=== PATIENT | male | born 1940 | race Hispanic/Latino ===

== ENCOUNTER 2018-06-16 22:08 | Inpatient (IN) | payer MEDICARE, OTHER ==
[~2018-06-16] VITALS: Ht 170.2 cm; Wt 80.9 kg
[2018-06-16] MEDS ORDERED: SODIUM CHLORIDE 0.9% 1000ML 1,000 ML IV STA ×2 (22:14→23:31)
[2018-06-16] MEDS ORDERED: PANTOPRAZOLE 40 MG 10ML VIAL IV STA (22:14)
[2018-06-16] MEDS ORDERED: SODIUM CHLORIDE 0.9% 250ML 250 ML IV ONE (22:15)
[2018-06-16 22:30] LABS: BASOPHILS % 0.2 % (0.0-1.0); EOSINOPHILS # (AUTO) 0.2 (0.0-0.4); EOSINOPHILS % 1.8 % (0.0-6.0); LYMPHOCYTES # (AUTO) 4.8 (1.0-3.2); LYMPHOCYTES % 40.7 % (18.0-39.1); MEAN CORPUSCULAR HEMOGLOBIN 33.9 pg (28-32); MEAN CORPUSCULAR HGB CONC 31.7 g/dL (31-35); MONOCYTES # (AUTO) 1.2 (0.2-0.8); MONOCYTES % 9.8 % (4.4-11.3); NEUTROPHILS # (AUTO) 5.6 (2.1-6.9); NEUTROPHILS % 46.9 % (38.7-80.0); PLATELET COUNT 177 x10e3/uL (140-360); RED BLOOD COUNT 1.86 x10e6/uL (4.3-5.7)
[2018-06-16 22:36] LABS: INR 1.05; PROTHROMBIN TIME 14.7 seconds (11.9-14.5)
[2018-06-16 22:45] LABS: B-TYPE NATRIURETIC PEPTIDE2 23.6 pg/mL (0-100); HEMOGLOBIN 6.3 g/dL (14.0-18.0)
[2018-06-16 22:46] LABS: HEMATOCRIT 19.9 % (38.2-49.6)
[2018-06-16 22:47] LABS: ALBUMIN 2.4 g/dL (3.5-5.0); ALBUMIN/GLOBULIN RATIO 1.2 (0.8-2.0); ANION GAP 20.3 mmol/L (8-16); CALCIUM 8.1 mg/dL (8.4-10.2); CREATININE, SERUM 1.37 mg/dL (0.72-1.25); MAGNESIUM 1.6 MG/DL (1.3-2.1); POTASSIUM 4.3 mmol/L (3.5-5.1)
[2018-06-16] MEDS ORDERED: VANCOMYCIN 1GM/NS 250 ML 250 ML IV STA (23:00)
[2018-06-16 23:01] LABS: CLARITY,URINE CLOUDY (CLEAR); COLOR,URINE RED (YELLOW)
[2018-06-16 23:02] LABS: BACTERIA,URINE FEW /HPF; BILIRUBIN,URINE NEGATIVE (NEGATIVE); EPITHELIAL CELLS,URINE FEW /LPF; KETONES,URINE NEGATIVE (NEGATIVE); LEUKOCYTE ESTERASE ,URINE NEGATIVE (NEGATIVE); MUCUS,URINE FEW (RARE); NITRITE,URINE NEGATIVE (NEGATIVE); PROTEIN,URINE DIPSTICK 2+ (NEGATIVE); RBC,URINE >50 /HPF (0-5); URINE UROBILINOGEN 0.2 mg/dL (0.2 - 1)
[2018-06-16] MEDS ORDERED: BENICAR20 MG PO (23:05)
[2018-06-16] MEDS ORDERED: ALTOPREV20 MG PO (23:05)
[2018-06-16 23:33] LABS: ABG HCO3 17 mmol/L (23-28); ABG PCO2 32 mmHg (41-51); ABG PH 7.32 (7.31-7.41); ABG PO2 109 mmHg (80-105)
[2018-06-16] MEDS: FUROSEMIDE INJ 10 MG/ML 2 ML VIAL IV PRN (23:58)
[2018-06-17] VITALS (59 sets, daily range): BP systolic 59–140; BP diastolic 22–78
--- NOTE | 2018-06-17 00:09 | Diagnostic Imaging Report ---
CHEST SINGLE (PORTABLE), 06/16/2018 11:34 PM Technique: CHEST SINGLE (PORTABLE) Comparison: None available. Clinical history: GI bleed Findings: See Impression Impression: 1. Lines/Tubes: Left chest wall ICD with right atrial and ventricular lead. Median sternotomy and CABG. 2. Normal cardiomediastinal silhouette for portable technique. 3. No edema or consolidation. No effusion or pneumothorax. Signed by: Dr Chasidy Silva MD on 06/17/2018 12:07 AM
[2018-06-17] MEDS ORDERED: DEXTROSE 50% SYRINGE 50 ML IV PRN (00:15)
[2018-06-17] MEDS: FUROSEMIDE INJ 10 MG/ML 2 ML VIAL IV PRN (00:15)
--- NOTE | 2018-06-17 00:46 | Diagnostic Imaging Report ---
EXAMINATION: Head CT without contrast. HISTORY:Syncope. COMPARISON:None. TECHNIQUE: Multidetector axial images were obtained from the foramen magnum to the vertex without contrast. The images were reconstructed using brain and bone algorithms. Thin section brain images were reformatted into coronal and sagittal planes. Dose modulation, iterative reconstruction, and/or weight based adjustment of the mA/kV was utilized to reduce the radiation dose to as low as reasonably achievable. Intravenous contrast: None IMAGE QUALITY: Acceptable. FINDINGS: Skull/scalp: No lytic or blastic. lesions. No surgical changes. Parenchyma: Nonspecific few, scattered supratentorial white matter patchy hypodensity are likely related to small vessel ischemic changes. Focal hypodensity in left caudate head and right subinsular region represents age indeterminate possible chronic lacunar infarct. No acute hemorrhage, mass or acute major vascular territorial infarct. Arteries: No density suggestive of thrombosis. Atherosclerotic calcification in bilateral carotid siphon. Dural sinuses: No abnormal density suggestive of thrombosis. Ventricles: No hydrocephalus or displacement. Extra-axial spaces: No abnormal density. Brain volume: Generalized age-related cerebral volume loss. Craniocervical junction: No mass, Chiari malformation, or basilar invagination. Sella: No mass. Paranasal/mastoid sinuses: Imaged portions unremarkable. IMPRESSION: No acute intracranial abnormality. Age indeterminate possible chronic lacunar infarct in right subinsular region and left caudate head. Mild supratentorial white matter microvascular ischemic changes. Generalized age-related cerebral volume loss. Signed by: Dr. Cecilia Arenas M.D. on 06/17/2018 12:44 AM
[2018-06-17] MEDS ORDERED: SODIUM CHLORIDE 0.9% 500ML 500 ML ONE (01:28)
[2018-06-17] MEDS: SODIUM CHLORIDE 0.9% 1000ML 1,000 ML IV SCH ×3 (01:38→17:29)
[2018-06-17] MEDS ORDERED: VANCOMYCIN 1GM/NS 250 ML 250 ML ONE (02:45)
[2018-06-17 05:31] LABS: BASOPHILS % 0.1 % (0.0-1.0); EOSINOPHILS % 0.3 % (0.0-6.0); HEMATOCRIT 29.9 % (38.2-49.6); HEMOGLOBIN 10.2 g/dL (14.0-18.0); LYMPHOCYTES # (AUTO) 2.4 (1.0-3.2); LYMPHOCYTES % 16.4 % (18.0-39.1); MEAN CORPUSCULAR HEMOGLOBIN 33.1 pg (28-32); MEAN CORPUSCULAR HGB CONC 34.1 g/dL (31-35); MONOCYTES # (AUTO) 1.2 (0.2-0.8); MONOCYTES % 7.9 % (4.4-11.3); NEUTROPHILS # (AUTO) 10.9 (2.1-6.9)
[2018-06-17 05:37] LABS: MEAN CORPUSCULAR VOLUME 97.1 fL (81-99); PLATELET COUNT 120 x10e3/uL (140-360); RED BLOOD COUNT 3.08 x10e6/uL (4.3-5.7)
[2018-06-17 05:56] LABS: ALANINE AMINOTRANSFERASE 14 IU/L (0-55); ALBUMIN 2.4 g/dL (3.5-5.0); ALKALINE PHOSPHATASE 63 IU/L (40-150); ANION GAP 13.7 mmol/L (8-16); BLOOD UREA NITROGEN 53 mg/dL (7-26); BUN/CREATININE RATIO 49 (6-25); CALCIUM 7.4 mg/dL (8.4-10.2); CARBON DIOXIDE 18 mmol/L (22-29); CHLORIDE 113 mmol/L (98-107); CREATININE, SERUM 1.08 mg/dL (0.72-1.25); EST GLOMERULAR FILTRATION RATE > 60 ML/MIN (60-); GLUCOSE 110 mg/dL (74-118); POTASSIUM 4.7 mmol/L (3.5-5.1); SODIUM 140 mmol/L (136-145)
[2018-06-17] MEDS ORDERED: PANTOPRAZOL 40MG/SOD CHL 0.9% 50 ML IV ONE (06:29)
[2018-06-17] MEDS ORDERED: PROTONIX 200MG/SODIUM CHLORIDE 0.9% 250 ML BAG IV SCH (06:30)
[2018-06-17] MEDS: PANTOPRAZOL 40MG/SOD CHL 0.9% 50 ML IV SCH ×4 (07:00→21:08)
[2018-06-17] MEDS: INSULIN REGULAR, HUMAN 100 UNIT/1 ML 3ML VIAL SQ SCH ×4 (07:30→21:00)
--- NOTE | 2018-06-17 07:44 | Consultation ---
DATE OF CONSULTATION: GASTROENTEROLOGY CONSULTATION REFERRING PHYSICIAN: Dr. Hidalgo. REASON FOR CONSULTATION: GI bleed. HISTORY OF PRESENT ILLNESS: Mr. Grijalva is a very nice 78-year-old man who unfortunately was recently diagnosed with pancreatic cancer. He is status post ERCP with stenting on May 07. Sphincterotomy and stenting was performed. It was a 10-Naur[place] 7-cm straight stent placed in the middle third of bile duct. He is not entirely sure when he started bleeding. He has had some maroon as well as black tarry stools. He was noted to be significantly anemic in the ER with a hemoglobin of 6.3. He has had some intermittent hypotension as well. He is in the ICU. After 3 units, his hemoglobin has responded to 10.2 despite also hydration. Bilirubin 1.8 from 1; other LFTs are unremarkable. PAST MEDICAL HISTORY 1. Recent diagnosis of pancreatic cancer. 2. Coronary artery disease. 3. AICD. 4. CHF. 5. Hypertension. 6. BPH. 7. GERD. ALLERGIES: REVIEWED. PLEASE SEE MAR, MEDICATION RECONCILIATION FORM. OF NOTE, HE IS ALLERGIC TO SULFA, KEFLEX, AND ASPIRIN. MEDICATIONS: Reviewed. Please see MAR, medication reconciliation form. SURGICAL HISTORY: Coronary artery bypass grafting, pacemaker defibrillator, and ERCP with stent. REVIEW OF SYSTEMS: Patient denies any chest pain or shortness of breath, but does endorse weakness and confusion. Otherwise, 12-system review is unremarkable. PHYSICAL EXAMINATION GENERAL: He is alert. He is oriented. After transfusion, he does not look particularly pale. He is in no acute distress. HEENT: Pupils equal, round, and reactive to light, little bit of conjunctival edema on the right eye. NECK: Supple. LUNGS: Clear. CARDIOVASCULAR: S1 and S2. ABDOMEN: Soft. Mildly tender in the central abdomen. No rebound, guarding, or mass. EXTREMITIES: No clubbing or cyanosis. PSYCH: Calm and cooperative. NEUROLOGIC: Alert and oriented, but reports being somewhat confused, not being able to provide his history well. HEM-ONC: No bruising or adenopathy. LABORATORY AND DIAGNOSTIC DATA: The electronic health record was reviewed for laboratory and radiologic studies as well as history. ASSESSMENT: Gastrointestinal bleed, likely upper gastrointestinal bleed, which is progressive. RECOMMENDATION: At the current time, erosion from the stent or the pancreatic cancer versus other upper GI pathology is on the differential. He could easily be bleeding from the biliary tract. Lower GI bleed is not completely ruled out. He does report that he has had a colonoscopy not long ago. He was unable to provide exactly when as he is currently foggy on details of his medical history. We will need to do upper endoscopy urgently to evaluate the source of the bleeding. Risks, benefits, and alternatives are discussed, and he agrees to proceed. He has now been fasting in appropriate time and is resuscitated adequately. Thank you very much for asking me to see Mr. Grijalva. Any questions or concerns, please do not hesitate to contact me. We will follow closely with you. Job#: [id number] GEMMA
[2018-06-17] MEDS ORDERED: PANTOPRAZOLE 40 MG 10ML VIAL IV SCH (09:00)
[2018-06-17] MEDS: PIPER-TAZ 3.375 GM 50 ML IV SCH ×3 (09:00→20:17)
[2018-06-17] MEDS ORDERED: EPINEPHRINE HCL INJ 1 MG/ML AMP ONE (09:45)
[2018-06-17] MEDS ORDERED: DOCUSATE SODIUM 100 MG CAP PO PRN (10:15)
[2018-06-17 11:55] LABS: BASOPHILS % 0.1 % (0.0-1.0); EOSINOPHILS # (AUTO) 0.2 (0.0-0.4); EOSINOPHILS % 2.2 % (0.0-6.0); HEMATOCRIT 29.3 % (38.2-49.6); LYMPHOCYTES # (AUTO) 2.6 (1.0-3.2); LYMPHOCYTES % 23.8 % (18.0-39.1); MEAN CORPUSCULAR HEMOGLOBIN 32.6 pg (28-32); MEAN CORPUSCULAR HGB CONC 34.1 g/dL (31-35); MEAN CORPUSCULAR VOLUME 95.4 fL (81-99); MONOCYTES # (AUTO) 0.8 (0.2-0.8); MONOCYTES % 7.2 % (4.4-11.3); NEUTROPHILS # (AUTO) 7.3 (2.1-6.9); NEUTROPHILS % 66.2 % (38.7-80.0); PLATELET COUNT 110 x10e3/uL (140-360); RED BLOOD COUNT 3.07 x10e6/uL (4.3-5.7); RED CELL DISTRIBUTION WIDTH 17.8 % (11.7-14.4)
[2018-06-17] MEDS: SUCRALFATE 1 GM TAB PO SCH ×3 (11:55→20:13)
[2018-06-17 16:50] LABS: CREATINE KINASE MB 3.8 ng/mL (0-5.0)
[2018-06-17 19:37] LABS: BASOPHILS % 0.3 % (0.0-1.0); EOSINOPHILS # (AUTO) 0.3 (0.0-0.4); EOSINOPHILS % 2.5 % (0.0-6.0); HEMATOCRIT 26.7 % (38.2-49.6); HEMOGLOBIN 9.3 g/dL (14.0-18.0); LYMPHOCYTES # (AUTO) 2.6 (1.0-3.2); LYMPHOCYTES % 23.4 % (18.0-39.1); MEAN CORPUSCULAR HGB CONC 34.8 g/dL (31-35); MEAN CORPUSCULAR VOLUME 94.7 fL (81-99); MONOCYTES # (AUTO) 0.9 (0.2-0.8); MONOCYTES % 8.2 % (4.4-11.3); NEUTROPHILS # (AUTO) 7.1 (2.1-6.9); NEUTROPHILS % 65.1 % (38.7-80.0); PLATELET COUNT 117 x10e3/uL (140-360); RED BLOOD COUNT 2.82 x10e6/uL (4.3-5.7)
[2018-06-17] MEDS ORDERED: PIPER-TAZ 3.375 GM 50 ML IV SCH (23:32)
[2018-06-17] MEDS: ALPRAZOLAM 0.25 MG TAB PO PRN (23:59)
[2018-06-18] VITALS (39 sets, daily range): BP systolic 86–136; BP diastolic 37–104
[2018-06-18] MEDS: PANTOPRAZOL 40MG/SOD CHL 0.9% 50 ML IV SCH ×4 (02:37→20:30)
[2018-06-18] MEDS: PIPER-TAZ 3.375 GM 50 ML IV SCH ×4 (02:37→20:30)
[2018-06-18] MEDS: SODIUM CHLORIDE 0.9% 1000ML 1,000 ML IV SCH ×2 (02:38→13:00)
[2018-06-18 05:08] LABS: BASOPHILS % 0.1 % (0.0-1.0); EOSINOPHILS # (AUTO) 0.3 (0.0-0.4); EOSINOPHILS % 3.9 % (0.0-6.0); HEMATOCRIT 23.3 % (38.2-49.6); HEMOGLOBIN 8.1 g/dL (14.0-18.0); LYMPHOCYTES # (AUTO) 2.4 (1.0-3.2); LYMPHOCYTES % 32.4 % (18.0-39.1); MEAN CORPUSCULAR HEMOGLOBIN 32.7 pg (28-32); MEAN CORPUSCULAR HGB CONC 34.8 g/dL (31-35); MONOCYTES # (AUTO) 0.5 (0.2-0.8); MONOCYTES % 7.2 % (4.4-11.3); NEUTROPHILS # (AUTO) 4.2 (2.1-6.9); NEUTROPHILS % 55.9 % (38.7-80.0); PLATELET COUNT 99 x10e3/uL (140-360); RED BLOOD COUNT 2.48 x10e6/uL (4.3-5.7)
[2018-06-18] MEDS: INSULIN REGULAR, HUMAN 100 UNIT/1 ML 3ML VIAL SQ SCH ×4 (07:30→20:30)
[2018-06-18] MEDS: SUCRALFATE 1 GM TAB PO SCH ×4 (07:54→20:30)
[2018-06-18 09:50] LABS: ANION GAP 11.9 mmol/L (8-16); BLOOD UREA NITROGEN 39 mg/dL (7-26); BUN/CREATININE RATIO 34 (6-25); CALCIUM 7.8 mg/dL (8.4-10.2); CARBON DIOXIDE 18 mmol/L (22-29); CHLORIDE 114 mmol/L (98-107); CREATININE, SERUM 1.16 mg/dL (0.72-1.25); EST GLOMERULAR FILTRATION RATE > 60 ML/MIN (60-); GLUCOSE 98 mg/dL (74-118); MAGNESIUM 1.4 MG/DL (1.3-2.1); POTASSIUM 3.9 mmol/L (3.5-5.1); SODIUM 140 mmol/L (136-145)
[2018-06-18] MEDS ORDERED: MAGNESIUM SULFATE 2GM/50ML 100 ML IV ONE (12:00)
[2018-06-18 12:09] LABS: BASOPHILS % 0.3 % (0.0-1.0); EOSINOPHILS # (AUTO) 0.2 (0.0-0.4); EOSINOPHILS % 2.9 % (0.0-6.0); HEMATOCRIT 23.6 % (38.2-49.6); HEMOGLOBIN 8.2 g/dL (14.0-18.0); LYMPHOCYTES # (AUTO) 1.7 (1.0-3.2); LYMPHOCYTES % 21.6 % (18.0-39.1); MEAN CORPUSCULAR HEMOGLOBIN 32.4 pg (28-32); MEAN CORPUSCULAR HGB CONC 34.7 g/dL (31-35); MEAN CORPUSCULAR VOLUME 93.3 fL (81-99); MONOCYTES # (AUTO) 0.7 (0.2-0.8); MONOCYTES % 8.2 % (4.4-11.3); NEUTROPHILS # (AUTO) 5.3 (2.1-6.9); NEUTROPHILS % 66.6 % (38.7-80.0); PLATELET COUNT 106 x10e3/uL (140-360); RED BLOOD COUNT 2.53 x10e6/uL (4.3-5.7); RED CELL DISTRIBUTION WIDTH 17.7 % (11.7-14.4)
[2018-06-18] MEDS ORDERED: PROPOFOL IV EMULSION 10 MG/ML 20 ML VIAL ONE (12:44)
--- NOTE | 2018-06-18 12:58 | Consultation ---
DATE OF CONSULTATION: June 18, 2018 CARDIOLOGY CONSULTATION REQUESTING PHYSICIAN: Dr. Doug Hidalgo REASON FOR CONSULTATION: Nonsustained ventricular tachycardia HISTORY OF PRESENT ILLNESS: This is a 78-year-old man with history of coronary artery disease status post CABG, hypertension, systolic heart failure status post AICD, and recently diagnosed pancreatic cancer status post sphincterotomy and stent, who presented with GI bleeding. The patient is a very poor historian and is unable to state when he began bleeding, but notes maroon and dark, tarry stools. He was found to be anemic in the ER with a hemoglobin of 6.3 for which he was transfused 3 units PRBCs. Cardiology was consulted for episode of nonsustained ventricular tachycardia overnight. He denies any chest pain, shortness of breath, palpitations, edema, orthopnea or PND. REVIEW OF SYSTEMS: Negative, except as per HPI. PAST MEDICAL HISTORY 1. Coronary artery disease, status post CABG. 2. Congestive heart failure, status post AICD. 3. Hypertension. 4. Recently diagnosed pancreatic cancer. 5. BPH. PAST SURGICAL HISTORY 1. CABG. 2. AICD. 3. ERCP with sphincterotomy and stent. ALLERGIES: PLEASE SEE EMR. MEDICATIONS: Please see medication list. SOCIAL HISTORY: Denies tobacco, alcohol, or illicit drugs. FAMILY HISTORY: Noncontributory. PHYSICAL EXAMINATION VITAL SIGNS: Temperature 98.1 degrees, pulse 79, respiratory rate 16, blood pressure 102/41, oxygen saturation 95% on 1 L nasal cannula. GENERAL: Elderly man in no acute distress, well developed, well nourished. HEENT: Normocephalic and atraumatic. Pupils are equal. No scleral icterus. NECK: Supple. No thyromegaly or cervical lymphadenopathy. No carotid bruit. LUNGS: Clear to auscultation bilaterally. No wheezes or crackles. CARDIOVASCULAR: Normal rate, regular rhythm. No murmur. Normal S1 and S2. ABDOMEN: Soft. Nontender. EXTREMITIES: No edema. NEURO: Nonfocal exam. LABS: WBC 7.49, hemoglobin 8.1, hematocrit 23.3, platelets 99. Sodium 140, potassium 3.9, chloride 114, CO2 18, BUN 39, creatinine 1.16. Troponin 0.480. TELEMETRY: Normal sinus rhythm with episode of nonsustained ventricular tachycardia. IMPRESSION 1. Gastrointestinal bleeding. 2. Nonsustained ventricular tachycardia. 3. Congestive heart failure, status post automatic implantable cardioverter-defibrillator. 4. Coronary artery disease, status post coronary artery bypass graft. 5. Elevated troponin. 6. Hypertension. 7. Acute kidney injury, improved. 8. BPH. RECOMMENDATIONS: Continue trending cardiac enzymes. The patient is not a candidate for anticoagulation given current GI bleeding. Continue statin. Obtain echocardiogram. Monitor and replete electrolytes. We will request ICD interrogation. Thank you for this consult. We will continue to follow. Job#: [id number]
[2018-06-18 16:44] LABS: BASOPHILS % 0.3 % (0.0-1.0); EOSINOPHILS # (AUTO) 0.2 (0.0-0.4); EOSINOPHILS % 3.1 % (0.0-6.0); HEMATOCRIT 26.6 % (38.2-49.6); HEMOGLOBIN 9.2 g/dL (14.0-18.0); LYMPHOCYTES # (AUTO) 1.9 (1.0-3.2); LYMPHOCYTES % 26.1 % (18.0-39.1); MEAN CORPUSCULAR HEMOGLOBIN 33.1 pg (28-32); MEAN CORPUSCULAR HGB CONC 34.6 g/dL (31-35); MEAN CORPUSCULAR VOLUME 95.7 fL (81-99); MONOCYTES # (AUTO) 0.5 (0.2-0.8); NEUTROPHILS # (AUTO) 4.7 (2.1-6.9); NEUTROPHILS % 63.1 % (38.7-80.0); PLATELET COUNT 130 x10e3/uL (140-360); RED BLOOD COUNT 2.78 x10e6/uL (4.3-5.7); RED CELL DISTRIBUTION WIDTH 17.8 % (11.7-14.4)
[2018-06-18 16:55] LABS: ANION GAP 12.9 mmol/L (8-16); CALCIUM 8.2 mg/dL (8.4-10.2); CREATININE, SERUM 1.22 mg/dL (0.72-1.25); MAGNESIUM 2.7 MG/DL (1.3-2.1); POTASSIUM 3.9 mmol/L (3.5-5.1)
--- NOTE | 2018-06-18 17:11 | Diagnostic Imaging Report ---
Examination: CT head without contrast Clinical Indication: Weakness. Evaluate for stroke. Technique: Transaxial noncontrast images from the skull base through the vertex were obtained. Sagittal and coronal reformatted images were done. Dose modulation, iterative reconstruction, and/or weight based adjustment of the mA/kV was utilized to reduce the radiation dose to as low as reasonably achievable. Comparison: Head CT performed June 17, 2018. Findings: Scalp: No abnormalities. Bones: Intact. No fractures. No blastic or lytic lesions. Brain sulci: Appropriate for patient's age. Ventricles: Normal in size and configuration. No hydrocephalus. . Extra-axial space: No abnormalities. Parenchyma: Again demonstrated are patchy confluent areas of low-attenuation within subcortical and periventricular white matter, nonspecific, but could represent microvascular ischemic disease. Chronic lacunar infarcts are again demonstrated in the right subinsular cortex and left caudate head. No masses, hemorrhage, or acute or chronic cortical based vascular insults. Suprasellar region: No abnormalities. Craniocervical junction: The foramen magnum is patent. No Chiari one malformation. Incidental findings: Atherosclerotic calcification of the cavernous and supraclinoid internal carotid and V4 segments of the bilateral vertebral arteries. Impression: 1. No acute intracranial finding when compared to prior head CT performed June 17. 2. Unchanged mild chronic microvascular ischemic change and chronic lacunar infarcts, as above. Signed by: Dr. Seema Mcdermott M.D. on 06/18/2018 5:08 PM
[2018-06-18 17:14] LABS: CREATINE KINASE MB 3.1 ng/mL (0-5.0)
[2018-06-18 17:20] LABS: INR 0.98; PROTHROMBIN TIME 13.9 seconds (11.9-14.5)
--- NOTE | 2018-06-18 22:27 | Progress Note ---
DATE: June 18, 2018 SUBJECTIVE: Patient is very well known to me from his last admission. He has inoperable pancreatic mass highly suggestive of pancreatic adenocarcinoma. He presented on last admission with obstructive jaundice. ERCP was done. Plastic stent was placed. Jaundice released. Patient was discharged. Patient left the hospital. We tried to reach him from our office to follow to get stent exchanged and also referral to pancreatic surgeon. Dr. Hidalgo happens to be patient's primary care physician. He also contracted the patient several times, but he never returned his call. Our office contracted him once, but he refused to follow up for stent exchange. This time, he presented with black tarry stool. Upper endoscopy was performed. This was negative. Did not show any source of blood loss. No active bleeding was seen. REVIEW OF SYSTEMS GENERAL: No fever or chills. RESPIRATORY: No cough or expectoration. CVS: No chest pain or palpitation. MEDICATIONS: Reviewed as per NOV. PHYSICAL EXAMINATION VITAL SIGNS: Temperature 98, pulse 64, respirations 15 to 19, blood pressure 125/66, oxygen saturation 97% on room air. GENERAL: Not in any acute distress. Oral mucosa is moist. Anicteric sclerae. ABDOMEN: Soft, nondistended, nontender. No palpable mass or hernia. Positive bowel sounds. LABS: WBC 7.42, hemoglobin 9.2 which is up from 8.2, hematocrit 26.6, MCV 95.7, platelet count 130,000. Sodium 139, potassium 3.9, chloride 111, bicarbonate 19, BUN 29, creatinine 1.22. PT 13.9, INR 0.98. CT of the brain: No acute intracranial process. IMPRESSION: No evidence of any active gastrointestinal bleeding. Hemoglobin is stable. PLAN: Will discontinue Protonix gtt to Protonix orally once a day for gastrointestinal prophylaxis. No need for sucralfate. Patient does not have any peptic ulcer. Will address with the patient regarding repeat endoscopic retrograde cholangiopancreatography with a plastic stent to be exchanged with a covered metal stent to prevent future jaundice. Job#: [id number] LORENZO
[2018-06-19] VITALS (26 sets, daily range): BP systolic 94–135; BP diastolic 35–85
[2018-06-19 00:24] LABS: BASOPHILS % 0.3 % (0.0-1.0); EOSINOPHILS # (AUTO) 0.3 (0.0-0.4); EOSINOPHILS % 3.5 % (0.0-6.0); HEMATOCRIT 25.6 % (38.2-49.6); HEMOGLOBIN 8.6 g/dL (14.0-18.0); LYMPHOCYTES # (AUTO) 1.9 (1.0-3.2); LYMPHOCYTES % 26.2 % (18.0-39.1); MEAN CORPUSCULAR HEMOGLOBIN 32.5 pg (28-32); MEAN CORPUSCULAR HGB CONC 33.6 g/dL (31-35); MEAN CORPUSCULAR VOLUME 96.6 fL (81-99); MONOCYTES # (AUTO) 0.5 (0.2-0.8); MONOCYTES % 6.9 % (4.4-11.3); NEUTROPHILS # (AUTO) 4.5 (2.1-6.9); NEUTROPHILS % 62.8 % (38.7-80.0); PLATELET COUNT 123 x10e3/uL (140-360); RED BLOOD COUNT 2.65 x10e6/uL (4.3-5.7); RED CELL DISTRIBUTION WIDTH 17.6 % (11.7-14.4)
[2018-06-19] MEDS: SODIUM CHLORIDE 0.9% 1000ML 1,000 ML IV SCH ×3 (00:35→20:18)
[2018-06-19] MEDS: PIPER-TAZ 3.375 GM 50 ML IV SCH ×4 (03:45→20:12)
[2018-06-19 04:45] LABS: BASOPHILS % 0.3 % (0.0-1.0); EOSINOPHILS # (AUTO) 0.3 (0.0-0.4); HEMATOCRIT 24.8 % (38.2-49.6); HEMOGLOBIN 8.5 g/dL (14.0-18.0); LYMPHOCYTES # (AUTO) 1.9 (1.0-3.2); MEAN CORPUSCULAR HEMOGLOBIN 32.7 pg (28-32); MEAN CORPUSCULAR HGB CONC 34.3 g/dL (31-35); MEAN CORPUSCULAR VOLUME 95.4 fL (81-99); MONOCYTES # (AUTO) 0.6 (0.2-0.8); MONOCYTES % 8.4 % (4.4-11.3); PLATELET COUNT 99 x10e3/uL (140-360); RED CELL DISTRIBUTION WIDTH 17.4 % (11.7-14.4)
[2018-06-19 05:04] LABS: ANION GAP 11.6 mmol/L (8-16); BLOOD UREA NITROGEN 22 mg/dL (7-26); BUN/CREATININE RATIO 19 (6-25); CALCIUM 8.1 mg/dL (8.4-10.2); CARBON DIOXIDE 19 mmol/L (22-29); CHLORIDE 113 mmol/L (98-107); CREATININE, SERUM 1.16 mg/dL (0.72-1.25); EST GLOMERULAR FILTRATION RATE > 60 ML/MIN (60-); GLUCOSE 95 mg/dL (74-118); MAGNESIUM 2.2 MG/DL (1.3-2.1); PHOSPHORUS 3.1 MG/DL (2.3-4.7); POTASSIUM 3.6 mmol/L (3.5-5.1); SODIUM 140 mmol/L (136-145)
[2018-06-19] MEDS: INSULIN REGULAR, HUMAN 100 UNIT/1 ML 3ML VIAL SQ SCH ×4 (07:30→20:22)
[2018-06-19] MEDS: PANTOPRAZOLE SOD 40 MG TABEC PO SCH (08:36)
[2018-06-19 17:54] LABS: CHOL/HDL RATIO 4.3 (3.9-4.7)
--- NOTE | 2018-06-19 19:06 | Progress Note ---
DATE: June 19, 2018 CARDIOLOGY PROGRESS NOTE SUBJECTIVE: No major events overnight. Continues to have black stools. However, no active bleeding. H\T\H remain stable. OBJECTIVE VITAL SIGNS: Temperature 98.0, pulse 61, respiratory rate 16, blood pressure 107/53, satting 99% on room air. GENERAL: man in no acute distress. CARDIOVASCULAR: Regular rate and rhythm. No murmurs, rubs or gallops. Palpable carotid pulses. Palpable radial pulses. LUNGS: Clear to auscultation bilaterally. ABDOMEN: Soft, nontender. No masses. NEURO: Alert and oriented to person, place and time. Left-sided weakness. LABORATORY DATA: Reviewed. TELEMETRY DATA: Reviewed. Normal sinus rhythm with short episode of nonsustained VT. ASSESSMENT 1. Gastrointestinal bleeding. 2. Nonsustained ventricular tachycardia. 3. Congestive heart failure status post automatic implantable cardioverter-defibrillator. 4. Coronary artery disease status post coronary artery bypass graft. 5. Elevated troponin. 6. Hypertension. 7. Acute kidney injury. 8. Benign prostatic hypertrophy. RECOMMENDATIONS: Troponin was positive with peak of 0.542. However, CK and CK-MB were negative. This is consistent likely with a type II WA in the setting of GI bleeding and possible stroke, not consistent with ACS. Given the recent GI bleeding and melena, not a candidate for anticoagulation. Neuro is following for left-sided weakness. Continue aspirin and statin. Thank you for this consult. Will continue to follow. Job#: [id number] EV
[2018-06-19 19:57] LABS: BASOPHILS % 0.1 % (0.0-1.0); EOSINOPHILS # (AUTO) 0.3 (0.0-0.4); EOSINOPHILS % 3.9 % (0.0-6.0); HEMATOCRIT 27.1 % (38.2-49.6); LYMPHOCYTES # (AUTO) 1.9 (1.0-3.2); MEAN CORPUSCULAR HEMOGLOBIN 32.6 pg (28-32); MEAN CORPUSCULAR HGB CONC 33.2 g/dL (31-35); MEAN CORPUSCULAR VOLUME 98.2 fL (81-99); MONOCYTES # (AUTO) 0.6 (0.2-0.8); MONOCYTES % 9.4 % (4.4-11.3); NEUTROPHILS # (AUTO) 3.9 (2.1-6.9); NEUTROPHILS % 58.5 % (38.7-80.0); PLATELET COUNT 132 x10e3/uL (140-360); RED BLOOD COUNT 2.76 x10e6/uL (4.3-5.7); RED CELL DISTRIBUTION WIDTH 17.5 % (11.7-14.4)
[2018-06-19] MEDS: SIMVASTATIN 20 MG TAB PO SCH (20:13)
[2018-06-19] MEDS: ALPRAZOLAM 0.25 MG TAB PO PRN (20:18)
--- NOTE | 2018-06-19 23:20 | Consultation ---
DATE OF CONSULTATION: June 19, 2018 NEUROLOGY CONSULT HISTORY OF PRESENT ILLNESS: Mr. Grijalva is a 78-year-old right hand dominant man with past medical history significant for hypertension, hyperlipidemia, coronary artery disease, and a prior stroke without residual deficits, admitted to [facility] on June 17, 2018, for gastrointestinal bleed. A neurology consultation is requested to evaluate for recent stroke. At approximately 16:20 on June 18, 2018, the patient reported a sudden onset of left arm weakness to the nurse. Mr. Grijalva endorsed left arm numbness as well. He did not, and does not, endorse a visual field cut or other disturbance, dysarthria, aphasia, facial droop, dizziness, or confusion. An electrocardiogram, cardiac enzymes, and a stat CT of the brain without contrast were ordered for further evaluation. The patient's electrocardiogram revealed a paced rhythm at 60 beats per minute. As regard to the patient's cardiac enzymes, his creatinine kinase and CK-MB were within normal limits. His troponin I was mildly elevated at 0.542. A CT of the brain without contrast did not show evidence of recent large territorial ischemia or hemorrhage. However, due to the patient's admitting diagnosis of gastrointestinal bleed, Mr. Grijalva was not a candidate for intravenous thrombolytics. As stated above, the patient does report experiencing a prior stroke. He does not recall what symptoms he had during his prior stroke. He reports no residual deficits from his prior stroke. It should be noted, the patient is not on antiplatelet or anticoagulant therapy at home. REVIEW OF SYSTEMS: Gastrointestinal bleed, diarrhea, dark tarry stools, weakness of the left arm, numbness of the left arm. Otherwise, a 12-point review of systems is negative. 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 PAST SURGICAL HISTORY: Pacemaker placement, coronary artery bypass graft times 2, ERCP, clubfoot repair. PAST HOSPITALIZATIONS: Surgeries/procedures as listed, stricture of the bile duct, multiple other hospitalizations for various symptoms. FAMILY MEDICAL HISTORY: Hypertension and coronary artery disease. Two maternal relatives are from pancreatic cancer. SOCIAL HISTORY: Mr. Grijalva is . He lives with his significant other. The patient is retired. The patient does not endorse current or prior tobacco or recreational drug use. He has not consumed alcohol in 30 years. HOME MEDICATIONS: 1. Olmesartan 20 mg by mouth daily. 2. Lovastatin 20 mg by mouth daily. ALLERGIES: SULFA, ASPIRIN, CEPHALEXIN. NO KNOWN FOOD ALLERGIES. NO KNOWN ALLERGIES TO LATEX. NO KNOWN ALLERGIES TO IODINE OR OTHER CONTRAST MATERIALS. PHYSICAL EXAMINATION: VITAL SIGNS: Height 67 inches, weight 176 pounds. BMI 27.6 kg per meter squared. Blood pressure 107/53 mmHg. Pulse 61 beats per minute. Respiratory rate 16 breaths per minute. Oxygen saturation 99% on 1 L by nasal cannula. GENERAL: The patient is awake and alert. Does not appear distressed. Overweight. HEENT: Normocephalic, atraumatic. Pupils are equal, round, and reactive to light. Moist mucous membranes. NECK: Supple. No appreciable thyromegaly. No appreciable carotid bruits. CARDIOVASCULAR: S1 and S2, regular rate and rhythm. No murmurs, rubs, or gallops. RESPIRATORY: Clear to auscultation bilaterally. No wheezes, rhonchi or rales. EXTREMITIES: The skin is warm and dry. No clubbing, cyanosis, or edema. The posterior tibial and dorsalis pedis pulses are 1+ and symmetric. SKIN: No rashes or lesions. NEUROLOGIC Memory/Attention: The patient is awake and alert. Oriented to person, place, time, and situation. Cranial Nerves: Cranial nerve I--not tested. Cranial nerve II, III, IV, and --pupils are equal and round, react briskly to light (from 4 mm to 2 mm). Extraocular movements intact. No nystagmus. Cranial nerve V--sensation to light touch and pinprick is intact in the bilateral V1 through V3 distributions. Strength of the temporalis and masseter muscles is within normal limits. Cranial nerve VII--the face is symmetric as are all facial movements. Strength is within normal limits. Cranial nerve VIII--hearing is intact to finger rub bilaterally. Cranial nerve IX, X--the soft palate elevates equally and symmetrically. Cranial nerve XI--normal strength of the bilateral sternocleidomastoid and trapezius muscles. Cranial nerve XII--the tongue protrudes in midline and moves symmetrically from side to side. Strength: Bulk is normal. Strength is 5/5 in the right deltoid, biceps, triceps, wrist flexors and extensors, finger flexors and extensors, intrinsic hand muscles, bilateral hip flexors, bilateral knee flexors and extensors, bilateral ankle dorsiflexion and plantar flexion, and bilateral intrinsic foot muscles. Tone is normal in the right arm and both legs. Strength is grossly 3/5 in the left arm. Tone is decreased in the left arm. DTRs: Deep tendon reflexes are 2+ and symmetric at the triceps, biceps, brachioradialis, and patellas. Deep tendon reflexes are absent and symmetric at the Achilles. Plantar responses are flexor bilaterally. Sensation: Sensation is intact to light touch and pinprick in both arms and both legs. Cerebellar: Bcquas-[id number]-wstjch and heel-benites movements are intact without dysmetria or other impairment except as follows: There is dysmetria of the left arm, but this is within the bounds of paresis. Gait: Deferred. Speech: Spontaneous speech is normal without appreciable dysarthria or aphasia. Repetition is intact. Involuntary Movements: None. Pronator Drift: Right arm. LABORATORY DATA: The patient's basic metabolic panel is significant for an elevated serum chloride of 113, a low carbon dioxide of 19, a low calcium of 8.1, and a mildly elevated magnesium of 2.2. Liver function tests drawn on June 16, 2018, are within normal limits. Lactic acid from June 16, 2018, is 77.8. A repeat lactic acid level on June 17, 2018, was 18.5. B-type natriuretic peptide 23.6. Cardiac enzymes were negative on June 16, 2018, June 17, 2018. On the afternoon of June 17, 2018, the troponin I increased to 0.480, 0.480, 0.542. The CBC with differential and platelets reveals a white blood cell count of 6.69 with a normal differential. The hemoglobin and hematocrit are 9.0 and 27.1, respectively. The platelet count is 132,000. A urinalysis collected on June 16, 2018, revealed cloudy red urine with 2+ protein, 3+ blood, greater than 50 red blood cells, 6 to 10 white blood cells, few epithelials cells, and few bacteria. A urine culture collected on June 16, 2018, showed no growth after 36 to 48 hours. DIAGNOSTIC STUDIES: Electrocardiogram on June 18, 2018: Paced rhythm at 60 beats per minute. Low-voltage QRS. Echocardiogram on June 18, 2018: Ejection fraction 30% to 35%. Concentric left ventricular hypertrophy. Chest x-ray on June 16, 2018: 1. Lines/tubes: Left chest wall ICD with right atrial and ventricular leads. Median sternotomy and CABG. 2. Normal cardiomediastinal silhouette for portable technique. 3. No edema or consolidation. No effusion or pneumothorax. CT of the brain without contrast on June 17, 2018: On my review, there is no evidence of recent large territorial ischemia, hemorrhage, mass, or mass effect. There are chronic lacunar infarcts of the right subinsular region and left caudate head. There is diffuse cerebral atrophy, appropriate for age. There are findings compatible with [id number] chronic small vessel ischemic disease. CT of the brain without contrast on June 18, 2018: Stable from prior CT of the brain without contrast performed on June 17, 2018. ASSESSMENT AND PLAN: Mr. Grijalva is a 78-year-old right hand dominant man with multiple vascular risk factors, admitted to [facility] on June 17, 2018, with a gastrointestinal bleed, who developed acute left arm weakness at approximately 16:20 on June 18, 2018. As soon as the patient's symptoms were recognized, a stat computed tomography of the brain was performed and did not reveal evidence of recent large territorial ischemia or hemorrhage. However, due to the patient's admitting diagnosis of a gastrointestinal bleed, treatment with intravenous thrombolytics was contraindicated. At present, Mr. Grijlava's neurological examination is significant for weakness of the left arm. His laboratory data and other diagnostic studies have been reviewed and are documented above. RECOMMENDATIONS: 1. A lipid panel and hemoglobin A1c will be ordered to assess control of the patient's vascular risk factors. 2. Bilateral carotid artery ultrasound with Doppler will be ordered to complete the stroke evaluation. 3. The patient may not be treated with antiplatelet or anticoagulant medication secondary to a gastrointestinal bleed. 4. The patient's blood pressures are currently at goal without antihypertensive medications. Continue to monitor vital signs per unit protocol. 5. Follow up the results of the patient's lipid panel. In the interim, treatment with simvastatin 20 mg by mouth at bedtime daily will be prescribed. 6. Follow up the results of the patient's hemoglobin A1c. Tight glycemic control is recommended while the patient is in the hospital. 7. Evaluations from physical and possibly speech therapy will be ordered in the near future. 8. GI prophylaxis with pantoprazole 40 mg by mouth daily. DVT prophylaxis with LEIGH hose and SCDs. 9. Defer treatment of the remaining medical comorbidities to the primary and other services following the patient. Thank you for this consultation. I will continue to follow the patient while he remains in the hospital. TIME SPENT: 70 minutes. Job#: [id number] KIMBERLY VENTURA
[2018-06-20] VITALS (21 sets, daily range): BP systolic 105–146; BP diastolic 53–69
[2018-06-20] MEDS: PIPER-TAZ 3.375 GM 50 ML IV SCH ×4 (02:33→20:26)
[2018-06-20 05:03] LABS: BASOPHILS % 0.2 % (0.0-1.0); EOSINOPHILS # (AUTO) 0.2 (0.0-0.4); EOSINOPHILS % 4.3 % (0.0-6.0); HEMOGLOBIN 8.2 g/dL (14.0-18.0); LYMPHOCYTES # (AUTO) 1.6 (1.0-3.2); LYMPHOCYTES % 29.6 % (18.0-39.1); MEAN CORPUSCULAR HEMOGLOBIN 32.8 pg (28-32); MEAN CORPUSCULAR HGB CONC 34.2 g/dL (31-35); MONOCYTES # (AUTO) 0.4 (0.2-0.8); MONOCYTES % 7.4 % (4.4-11.3); NEUTROPHILS # (AUTO) 3.2 (2.1-6.9); NEUTROPHILS % 58.1 % (38.7-80.0); PLATELET COUNT 117 x10e3/uL (140-360); RED CELL DISTRIBUTION WIDTH 17.1 % (11.7-14.4)
[2018-06-20 05:14] LABS: INR 1.05; PROTHROMBIN TIME 14.6 seconds (11.9-14.5)
[2018-06-20 05:15] LABS: PARTIAL THROMBOPLASTIN TIME 28.1 seconds (23.8-35.5)
[2018-06-20 05:21] LABS: ALANINE AMINOTRANSFERASE 12 IU/L (0-55); ALBUMIN 2.4 g/dL (3.5-5.0); ALKALINE PHOSPHATASE 55 IU/L (40-150); ANION GAP 12.5 mmol/L (8-16); BLOOD UREA NITROGEN 13 mg/dL (7-26); BUN/CREATININE RATIO 11 (6-25); CARBON DIOXIDE 19 mmol/L (22-29); CHLORIDE 113 mmol/L (98-107); CREATININE, SERUM 1.16 mg/dL (0.72-1.25); EST GLOMERULAR FILTRATION RATE > 60 ML/MIN (60-); GLUCOSE 115 mg/dL (74-118); POTASSIUM 3.5 mmol/L (3.5-5.1); SODIUM 141 mmol/L (136-145)
[2018-06-20] MEDS: INSULIN REGULAR, HUMAN 100 UNIT/1 ML 3ML VIAL SQ SCH ×4 (07:30→20:26)
[2018-06-20] MEDS: PANTOPRAZOLE SOD 40 MG TABEC PO SCH (07:30)
[2018-06-20] MEDS: SODIUM CHLORIDE 0.9% 1000ML 1,000 ML IV SCH ×2 (09:40→17:24)
--- NOTE | 2018-06-20 10:22 | Progress Note ---
DATE: June 20, 2018 CARDIOLOGY PROGRESS NOTE SUBJECTIVE: The patient denies chest pain or shortness of breath. He has not had further bleeding. However, he is more confused than prior. OBJECTIVE VITALS: Temperature 98.9 degrees, pulse 62, respiratory rate 20, blood pressure 129/62, oxygen saturation 99% on room air. GENERAL: Awake, alert and in no acute distress. Somewhat confused. LUNGS: Clear to auscultation bilaterally. No wheezes or crackles. CARDIOVASCULAR: Normal rate. Regular rhythm. No murmur. Normal S1 and S2. ABDOMEN: Soft and nontender. EXTREMITIES: No edema. Left-sided weakness is noted. CARDIAC MEDICATIONS: Simvastatin 20 mg p.o. at bedtime. LABS: WBC 5.54, hemoglobin 8.2, hematocrit 24, and platelets 117,000. Sodium 141, potassium 3.5, chloride 113, CO2 19, BUN 13, creatinine 1.16. INR 1.05. Telemetry is A-paced with PVCs. IMPRESSION 1. Gastrointestinal bleeding. 2. Nonsustained ventricular tachycardia. 3. Left arm weakness. 4. Congestive heart failure: Status post automatic implanted cardioverter defibrillator. 5. Coronary artery disease: Status post coronary artery bypass graft. 6. Elevated troponin. 7. Hypertension. 8. Acute kidney injury. 9. BPH. 10. Pancreatic cancer. RECOMMENDATIONS: The patient is not a candidate for anticoagulation due to GI bleeding. We will discuss with GI if aspirin 81 mg can be initiated. Continue statin. Continue monitoring the patient on telemetry. Monitor and replete electrolytes. Thank you for this consult. We will continue to follow. Job#: [id number] [facility]
[2018-06-20 12:33] LABS: EOSINOPHILS # (AUTO) 0.2 (0.0-0.4); EOSINOPHILS % 3.7 % (0.0-6.0); HEMOGLOBIN 8.5 g/dL (14.0-18.0); LYMPHOCYTES # (AUTO) 1.2 (1.0-3.2); LYMPHOCYTES % 23.7 % (18.0-39.1); MEAN CORPUSCULAR HEMOGLOBIN 33.1 pg (28-32); MEAN CORPUSCULAR VOLUME 97.3 fL (81-99); MONOCYTES # (AUTO) 0.4 (0.2-0.8); MONOCYTES % 7.5 % (4.4-11.3); NEUTROPHILS # (AUTO) 3.3 (2.1-6.9); NEUTROPHILS % 64.9 % (38.7-80.0); PLATELET COUNT 116 x10e3/uL (140-360); RED BLOOD COUNT 2.57 x10e6/uL (4.3-5.7); RED CELL DISTRIBUTION WIDTH 17.2 % (11.7-14.4)
[2018-06-20] MEDS ORDERED: IOPAMIDOL 610MG/1ML 300 MG/ML VIAL IV ONE (14:20)
[2018-06-20] MEDS ORDERED: INDOMETHACIN 50 MG SUPP.RECT RC ONE (14:21)
[2018-06-20] MEDS: PANTOPRAZOLE 40 MG 10ML VIAL IV SCH (17:24)
[2018-06-20] MEDS ORDERED: PROPOFOL IV EMULSION 10 MG/ML 20 ML VIAL ONE (17:27)
[2018-06-20] MEDS ORDERED: SEVOFLURANE INHAL SOLN 250 ML PEN BTL ONE (17:27)
[2018-06-20] MEDS ORDERED: ETOMIDATE 2 MG/ML 10 ML INJ IV ONE (17:27)
[2018-06-20] MEDS ORDERED: LIDOCAINE HCL 2% LOCAL INJ 5 ML SDV VIAL INJ ONE (17:27)
[2018-06-20] MEDS ORDERED: SUCCINYLCHOLINE 200 MG/10 ML SYR ONE (17:27)
[2018-06-20] MEDS ORDERED: ONDANSETRON HCL INJ 2 MG/ML VIAL ONE (17:27)
[2018-06-20] MEDS ORDERED: ROCURONIUM BROMIDE 10 MG/ML 5ML VIAL ONE (17:27)
[2018-06-20 18:57] LABS: BASOPHILS % 0.2 % (0.0-1.0); EOSINOPHILS # (AUTO) 0.1 (0.0-0.4); EOSINOPHILS % 1.3 % (0.0-6.0); HEMATOCRIT 28.7 % (38.2-49.6); HEMOGLOBIN 9.7 g/dL (14.0-18.0); LYMPHOCYTES # (AUTO) 1.4 (1.0-3.2); LYMPHOCYTES % 14.7 % (18.0-39.1); MEAN CORPUSCULAR HEMOGLOBIN 33.4 pg (28-32); MEAN CORPUSCULAR HGB CONC 33.8 g/dL (31-35); MONOCYTES % 10.5 % (4.4-11.3); NEUTROPHILS # (AUTO) 6.7 (2.1-6.9); NEUTROPHILS % 72.8 % (38.7-80.0); PLATELET COUNT 125 x10e3/uL (140-360); RED CELL DISTRIBUTION WIDTH 17.5 % (11.7-14.4)
--- NOTE | 2018-06-20 20:17 | Progress Note ---
DATE: June 19, 2018 Patient was seen at bedside yesterday. The progress note is being transcribed today. SUBJECTIVE: Patient reports no abdominal pain. He is feeling weak. Tolerating oral feeds. Regular bowel movements. REVIEW OF SYSTEMS GENERAL: No fever or chills. CVS: No chest pain or palpitation. RESPIRATORY: No cough or expectoration. MEDICATION LIST: Reviewed as per NOV. He is getting intravenous piperacillin/tazobactam along with other medications. PHYSICAL EXAMINATION VITAL SIGNS: Temperature 98.5, pulse 66, respiration 16, blood pressure 132/61, oxygen saturation 99% on room air. GENERAL: Not in any acute distress. HEENT: Moist mucous membrane. Anicteric sclerae. CVS: S1, S2 irregular with 2/6 slow murmur at the apex. LUNGS: Bilaterally grossly clear with occasional rales at the bases. ABDOMEN: Soft, nondistended, nontender. No mass or hernia. Positive bowel sounds. LABS: WBC is 5.10, hemoglobin 8.5 from 8.2, hematocrit 25, platelet count 116. Sodium 140, potassium 3.6, chloride 113, bicarb 19, BUN 11.6, creatinine 1.16. IMPRESSION 1. Patient no longer having any dark stool. Hemoglobin is stable. 2. Pancreatic malignancy, likely adenocarcinoma, status post endoscopic retrograde cholangiopancreatography with sphincterotomy and plastic biliary stent placed on last admission. This needs to be replaced with permanent covered metal stent to prevent obstructive jaundice in future. Based upon CT exam on last visit, he appears to have a focus in the liver suspicious for metastasis. Pancreatic mass is also involving vasculature. Given his poor cardiac risk, he is not a candidate for any surgery. PLAN: I had a detailed thorough discussion with the patient as well as his sister who was in the room. I explained everything that how he will be benefited from exchanging the plastic stent with a metal stent. Risks, benefits, alternatives including doing nothing with ERCP were explained to the patient. Patient agreed to proceed with the procedure. Recommend also oncology consult. Job#: [id number] [facility]AS [facility]
[2018-06-20] MEDS: SUCRALFATE 1 GM/10 ML SUSP NG SCH (20:26)
[2018-06-20] MEDS: SIMVASTATIN 20 MG TAB PO SCH (20:26)
[2018-06-21] VITALS (7 sets, daily range): BP systolic 127–167; BP diastolic 61–74
[2018-06-21] MEDS: PIPER-TAZ 3.375 GM 50 ML IV SCH ×4 (03:26→21:00)
[2018-06-21] MEDS: SODIUM CHLORIDE 0.9% 1000ML 1,000 ML IV SCH ×2 (05:25→14:08)
[2018-06-21 05:53] LABS: BASOPHILS % 0.2 % (0.0-1.0); EOSINOPHILS # (AUTO) 0.2 (0.0-0.4); EOSINOPHILS % 2.4 % (0.0-6.0); HEMATOCRIT 27.8 % (38.2-49.6); HEMOGLOBIN 9.2 g/dL (14.0-18.0); LYMPHOCYTES # (AUTO) 1.9 (1.0-3.2); LYMPHOCYTES % 22.9 % (18.0-39.1); MEAN CORPUSCULAR HEMOGLOBIN 32.7 pg (28-32); MEAN CORPUSCULAR HGB CONC 33.1 g/dL (31-35); MEAN CORPUSCULAR VOLUME 98.9 fL (81-99); MONOCYTES # (AUTO) 0.8 (0.2-0.8); MONOCYTES % 9.2 % (4.4-11.3); NEUTROPHILS # (AUTO) 5.4 (2.1-6.9); NEUTROPHILS % 65.1 % (38.7-80.0); PLATELET COUNT 139 x10e3/uL (140-360); RED BLOOD COUNT 2.81 x10e6/uL (4.3-5.7); RED CELL DISTRIBUTION WIDTH 17.1 % (11.7-14.4)
[2018-06-21 06:12] LABS: ALANINE AMINOTRANSFERASE 11 IU/L (0-55); ALBUMIN 2.7 g/dL (3.5-5.0); ALKALINE PHOSPHATASE 66 IU/L (40-150); ANION GAP 16.9 mmol/L (8-16); BLOOD UREA NITROGEN 10 mg/dL (7-26); BUN/CREATININE RATIO 10 (6-25); CALCIUM 8.4 mg/dL (8.4-10.2); CARBON DIOXIDE 18 mmol/L (22-29); CHLORIDE 110 mmol/L (98-107); CREATININE, SERUM 1.05 mg/dL (0.72-1.25); EST GLOMERULAR FILTRATION RATE > 60 ML/MIN (60-); GLUCOSE 97 mg/dL (74-118); POTASSIUM 3.9 mmol/L (3.5-5.1); SODIUM 141 mmol/L (136-145)
[2018-06-21] MEDS: INSULIN REGULAR, HUMAN 100 UNIT/1 ML 3ML VIAL SQ SCH ×4 (07:30→21:00)
--- NOTE | 2018-06-21 07:37 | Diagnostic Imaging Report ---
PROCEDURE:ERCP - INTERPRETATION OF FLUOROSCOPIC IMAGES TECHNIQUE: Multiple fluoroscopic images from ERCP were provided for interpretation. INDICATION:Pancreatic neoplasm COMPARISON:None. FINDINGS: Initial proof operator images demonstrate a common duct plastic stent. The common bile duct is cannulated and contrast injection demonstrates mild proximal common bile duct and left intrahepatic ductal dilatation. The right biliary system is not opacified. No stone or mass is visible in the visualized biliary system. The distal common bile duct is not well opacified, although some contrast is visualized in the small bowel. Final images demonstrate placement of a metal common bile duct stent, although no contrast opacification within the stent is demonstrated. CONCLUSION: Removal of plastic CBD stent and placement of metallic CBD stent as above. Mild dilation of the proximal common bile duct and left intrahepatic bile ducts as above. Dictated by: NORMA COLES M.D. on 06/21/2018 at 7:44 Electronically approved by: NORMA COLES M.D. on 06/21/2018 at 7:44
[2018-06-21] MEDS: SUCRALFATE 1 GM/10 ML SUSP NG SCH ×4 (09:12→21:00)
[2018-06-21] MEDS: PANTOPRAZOLE 40 MG 10ML VIAL IV SCH ×2 (09:12→16:14)
--- NOTE | 2018-06-21 11:33 | Progress Note ---
DATE: June 21, 2018 CARDIOLOGY PROGRESS NOTE SUBJECTIVE: The patient denies chest pain or shortness of breath. He continues to have left-sided weakness. OBJECTIVE VITALS: Temperature 97.2 degrees, pulse 65, respiratory rate 18, blood pressure 127/61, oxygen saturation 89% on 2 L nasal cannula. GENERAL: Awake, alert and in no acute distress. LUNGS: Clear to auscultation bilaterally. No wheezes or crackles. CARDIOVASCULAR: Normal rate. Regular rhythm. No murmur. Normal S1 and S2. ABDOMEN: Soft and nontender. EXTREMITIES: No edema. Left-sided weakness is present. CARDIAC MEDICATIONS: Simvastatin 20 mg p.o. at bedtime. LABS: WBC 8.27, hemoglobin 9.2, hematocrit 27.8, platelets 139. Sodium 141, potassium 3.9, chloride 110, CO2 18, BUN 10, creatinine 1.05. TELEMETRY: Normal sinus rhythm. IMPRESSION 1. Gastrointestinal bleeding. 2. Nonsustained ventricular tachycardia. 3. Left arm weakness. 4. Congestive heart failure, status post automatic implanted cardioverter defibrillator. 5. Coronary artery disease, status post coronary artery bypass graft. 6. Elevated troponin. 7. Hypertension. 8. Acute kidney injury. 9. BPH. 10. Pancreatic cancer. RECOMMENDATIONS: The patient is not a candidate for anticoagulation due to GI bleeding. We will discuss with GI if aspirin can be initiated. Continue statin. Continue monitoring the patient on telemetry. Monitor and replete electrolytes. No hemodynamically significant stenosis was present on carotid Doppler. If necessary, the patient's device is MRI conditional. Defer decision regarding MRI to neurology. Thank you for this consult. We will continue to follow. Job#: [id number] [facility]
--- NOTE | 2018-06-21 20:40 | Progress Note ---
DATE: SUBJECTIVE: Patient reports no abdominal pain. He has had ERCP with the CBD plastic stent exchange with the palliative metal stent yesterday. He was also found to have a large cratered duodenal ulcer. Patient is having bowel movement, which is getting light brown now. No abdominal pain. REVIEW OF SYSTEMS GENERAL: Weakness and lethargy. CVS: No chest pain, palpitation. RESPIRATORY: No cough or expectoration. MEDICATIONS: Reviewed the MAR. He is on a intravenous pantoprazole 40 mg twice daily along with oral sucralfate 1 g a.c. and nightly. He is also getting intravenous piperacillin and tazobactam along with other medications. PHYSICAL EXAMINATION VITAL SIGNS: Temperature 97, pulse 65, respiration 20, blood pressure 140/65. GENERAL: Sitting comfortably at the bedside commode. Gross pallor. Oral mucosa is moist. Anicteric sclerae. ABDOMEN: Soft, nondistended, nontender. No palpable mass or hernia. Positive bowel sounds. LABS: WBC 8.27, hemoglobin 9.2, which is down from 9.7, hematocrit 27.8. MCV 98.9, platelet counts 139,000. Liver enzymes normal. Electrolytes normal. IMPRESSION: 1. Inoperable pancreatic cancer with a focus of lesion in the liver , highly suspicious for metastasis. Vasculatures were also involved; therefore, he is not a candidate for surgery. Patient has very poor cardiac result, high risk. Cardiology is following. 2. Large cratered duodenal ulcer without any stigmata of bleeding. This could be potential source of upper GI bleeding. Aspirin can be started if clinically indicated. PLAN: Patient is feeling overall better than before. No abdominal pain. Will continue present medical management. Discussed the option of palliative care with the patient's sister, as well as with patient's primary care physician, Dr. Hidalgo. - continue PPI IB 40 mg ( Pantoprazole) BID + Sucralfate. Job#: [id number] [facility]
[2018-06-21] MEDS: SIMVASTATIN 20 MG TAB PO SCH (22:03)
[2018-06-22] VITALS (58 sets, daily range): BP systolic 78–145; BP diastolic 51–101
[2018-06-22] MEDS: SODIUM CHLORIDE 0.9% 1000ML 1,000 ML IV SCH ×4 (02:43→22:07)
[2018-06-22] MEDS: PIPER-TAZ 3.375 GM 50 ML IV SCH ×4 (02:43→20:52)
[2018-06-22] MEDS: INSULIN REGULAR, HUMAN 100 UNIT/1 ML 3ML VIAL SQ SCH ×4 (07:30→20:47)
[2018-06-22] MEDS: SUCRALFATE 1 GM/10 ML SUSP NG SCH ×4 (08:14→20:52)
[2018-06-22] MEDS: PANTOPRAZOLE 40 MG 10ML VIAL IV SCH (08:14)
[2018-06-22] MEDS ORDERED: SODIUM CHLORIDE 0.9% 250ML 250 ML IV ONE ×2 (08:30→09:15)
[2018-06-22] MEDS ORDERED: SODIUM CHLORIDE 0.9% 1000ML 1,000 ML IV ONE (08:45)
[2018-06-22] MEDS ORDERED: PANTOPRAZOLE INJ 40 MG in SODIUM CHLORIDE 0.9% 50ML 50 ML IV SCH (09:00)
[2018-06-22] MEDS ORDERED: ASPIRIN 81 MG ENTERIC COATED PO SCH (09:00)
[2018-06-22 09:06] LABS: HEMATOCRIT 20.6 % (38.2-49.6); HEMOGLOBIN 6.9 g/dL (14.0-18.0)
[2018-06-22 09:26] LABS: ANION GAP 16.1 mmol/L (8-16); CALCIUM 7.6 mg/dL (8.4-10.2); CREATININE, SERUM 1.19 mg/dL (0.72-1.25); POTASSIUM 3.1 mmol/L (3.5-5.1)
--- NOTE | 2018-06-22 09:50 | Diagnostic Imaging Report ---
PROCEDURE:X-RAY ABDOMEN - KUB COMPARISON:None. INDICATIONS:ABDOMEN PAIN FINDINGS: There is a metallic biliary stent present in appropriate position. There are no dilated loops of bowel to suggest obstruction. There are no masses or abnormal calcifications. There is no evidence of free air. No acute osseous abnormalities are present. CONCLUSION: No acute abdominal abnormality. Alonzo Greer D.O. Dictated by: Alonzo Greer D.O. on 06/22/2018 at 9:57 Electronically approved by: Alonzo Greer D.O. on 06/22/2018 at 9:57
[2018-06-22] MEDS ORDERED: POTASSIUM CHLORIDE 20MEQ/100ML 200 ML IV ONE (10:00)
--- NOTE | 2018-06-22 11:53 | Diagnostic Imaging Report ---
ADDENDUM #1 Addendum impression: The current radiograph is poorly penetrated and the pacemaker wire leading to the right atrium is not apparent and appears to end in the mid right atrium. However, this is likely artifactual. PICC line probably is at the low superior vena cava. Signed by: Dr. Jeancarlos Anderson M.D. on 06/22/2018 12:02 PM ORIGINAL REPORT Examination: Single AP view of the chest. COMPARISON: None. INDICATION: PICC line placement DISCUSSION: Lines/tubes: None. Lungs: Right PICC line with the distal tip in the mid right atrium consider 5 cm retraction. Sternotomy wires. 2-lead cardiac pacemaker. Pleura: No pleural effusion or pneumothorax. Heart and mediastinum: The heart and the mediastinum are unremarkable. Bones and soft tissues: No acute bony abnormalities. IMPRESSION: 1. Right PICC line with the distal tip in the mid right atrium consider 5 cm retraction. Signed by: Dr. Jeancarlos Anderson M.D. on 06/22/2018 11:50 AM
[2018-06-22] MEDS: PANTOPRAZOL 40MG/SOD CHL 0.9% 50 ML IV SCH ×4 (12:10→21:00)
[2018-06-22 12:50] LABS: INR 1.22; PROTHROMBIN TIME 16.5 seconds (11.9-14.5)
[2018-06-22] MEDS ORDERED: SODIUM CHLORIDE 0.9% 250ML 250 ML ONE (12:59)
--- NOTE | 2018-06-22 14:05 | Progress Note ---
DATE: June 22, 2018 SUBJECTIVE: Patient has had recurrent bouts of melena on the floor today. He became hypotensive and unstable. He was subsequently transferred to ICU. Here he is getting intravenous Protonix infusion and IV fluids as well as blood transfusion. Hemoglobin was recorded at 6.9. This has dropped from 9.2. Patient reports no abdominal pain. No nausea or vomiting. REVIEW OF SYSTEMS GENERAL: No fever or chills, but he complains about weakness and lethargy. CVS: No chest pain or palpitations. RESPIRATORY: No cough or expectoration. MEDICATIONS: Reviewed as per NOV. He is on Protonix infusion along with intravenous piperacillin/tazobactam and other medications. IMPRESSION 1. Upper gastrointestinal bleeding likely from duodenal ulcer. This episode of GI bleeding started today after aspirin was given yesterday. 2. Pancreatic cancer, inoperable, with a focus in the liver suggestive of metastasis. Pancreatic vasculature is involved as per the imaging. Patient had an endoscopic retrograde cholangiopancreatography initially. A plastic stent was placed in the common bile duct. This was replaced by a palliative covered metal stent on 06/19/2018. 3. Patient's common bile duct brushing cytology, which was performed on the 1st endoscopic retrograde cholangiopancreatography, showed atypical cells. PLAN 1. Agree to the standard medical management for GI bleeding that should include securing large IV access, IV fluids, blood transfusion as necessary. Monitor hemoglobin. Monitor bowel movements. 2. Be cautious with giving IV fluids as patient has a poor cardiac reserve with low ejection fraction. Therefore, he is at the risk of developing pulmonary edema if he was given IV fluids aggressively. 3. At this point in time, keep him n.p.o. for the next 12 hours. 4. Surgery consult. Job#: [id number]
--- NOTE | 2018-06-22 14:39 | Progress Note ---
DATE: June 22, 2018 CARDIOLOGY PROGRESS NOTE SUBJECTIVE: Patient was transferred to the ICU this morning after developing bright red blood per rectum and hypotension. He was found to be anemic to 6.9. Patient denies chest pain or shortness of breath. However, he does indicate he feels poorly. OBJECTIVE VITALS: Temperature 96.4 degrees, pulse 60, respiratory rate 18, blood pressure 145/65, oxygen saturation 96% on 2 L nasal cannula. GENERAL: Chronically ill-appearing man in no acute distress. Awake and alert. LUNGS: Clear to auscultation bilaterally. No wheezes or crackles. CARDIOVASCULAR: Normal rate. Regular rhythm. No murmur. Normal S1 and S2. ABDOMEN: Soft and nontender. EXTREMITIES: No edema. CARDIAC MEDICATIONS: Simvastatin 20 mg p.o. at bedtime. LABS: Hemoglobin 6.9, hematocrit 20.6. Sodium 141, potassium 3.1, chloride 111, CO2 17, BUN 8, creatinine 1.19. Telemetry is normal sinus rhythm with PACs and PVCs. IMPRESSION 1. Acute gastrointestinal bleeding. 2. Nonsustained ventricular tachycardia. 3. Left arm weakness. 4. Congestive heart failure: Status post automatic implanted cardioverter defibrillator. 5. Coronary artery disease: Status post coronary artery bypass graft. 6. Elevated troponin. 7. Hypertension. 8. Acute kidney injury, resolved. 9. BPH. 10. Pancreatic cancer. RECOMMENDATIONS: The patient is not a candidate for anticoagulation or antiplatelet therapy due to GI bleeding. Continue statin. Transfuse PRBCs. Monitor the patient closely on telemetry. EKG today demonstrates sinus rhythm with PVCs. Thank you for this consult. Will continue to follow. Job#: [id number] [place]
[2018-06-22] MEDS: FUROSEMIDE INJ 10 MG/ML 2 ML VIAL IV PRN (16:22)
--- NOTE | 2018-06-22 16:47 | Consultation ---
DATE OF CONSULTATION: June 22, 2018 CHIEF COMPLAINT: GI bleeding. HISTORY OF PRESENT ILLNESS: The patient is a 78-year-old male with known history of advanced pancreatic cancer, status post endoscopic stenting of the common bile duct. The patient was admitted for anemia. During hospitalizations, he underwent upper GI endoscopy which showed a large duodenal ulcer without active bleeding at that time. However, today the patient was noted to have a large bright red bleeding per rectum. He also became hypotensive. PAST MEDICAL HISTORY: As mentioned positive for pancreatic cancer, coronary artery disease, heart failure, hypertension, and GERD. SURGICAL HISTORY: Positive for coronary artery bypass, AICD placement, ERCP with stenting. ALLERGIES: PATIENT IS ALLERGIC TO SULFA, PENICILLIN, AND ASPIRIN. REVIEW OF SYSTEMS: No current chest pain or shortness of breath. PHYSICAL EXAMINATION GENERAL: He is sedated. HEENT: Sclerae are mildly icteric. NECK: Supple. LUNGS: Clear. HEART: Regular rate and rhythm. ABDOMEN: Soft. There is mild guarding in the epigastrium without rebound. EXTREMITIES: Mild pitting edema. White cell count was 8. Hemoglobin was 9 yesterday, today is 6.9. Platelet count is 139. Creatinine is 1.1. Bilirubin of 1.0, alkaline phosphatase is 66, and lipase 30. ASSESSMENT: Gastrointestinal bleeding likely secondary to noted duodenal ulcer on esophagogastroduodenoscopy. PLAN: Bleeding scan has been initiated. We will follow patient closely with you. Job#: [id number] BECCA
--- NOTE | 2018-06-22 19:20 | Diagnostic Imaging Report ---
Tagged-RBC GI Bleed Study Clinical information: 78-year-old male with bright red blood per rectum. Discussion: The patient's own red blood cells were labeled with 22.5 mCi of technetium-99m pertechnetate using the in vitro method (UltraTag). Dynamic images of the abdomen were obtained through 60 minutes. Distribution of tracer activity appears physiologic throughout the abdomen. No abnormal accumulation of tracer is seen within the gastrointestinal lumen. Impression: No scan evidence of active gastrointestinal bleeding at this time. Signed by: Dr. Aruna Baeza M.D. on 06/22/2018 7:17 PM
[2018-06-22 20:13] LABS: HEMATOCRIT 25.1 % (38.2-49.6); HEMOGLOBIN 8.5 g/dL (14.0-18.0)
[2018-06-22] MEDS: SIMVASTATIN 20 MG TAB PO SCH (20:52)
--- NOTE | 2018-06-22 23:21 | Consultation ---
DATE OF CONSULTATION: June 22, 2018 REQUESTING PHYSICIAN: Rocky Camacho MD REASON FOR CONSULT: Evaluation and management of patient with known diagnosis of unresectable pancreatic cancer, admitted due to GI bleeding. HISTORY OF PRESENT ILLNESS: Mr. Grijalva is a very pleasant 78-year-old gentleman with known history of coronary artery disease, congestive heart failure, hypertension, and recent diagnosis of unresectable pancreatic cancer, admitted to the emergency department due to severe anemia and GI bleed. He underwent upper GI endoscopy revealing duodenal ulcer without active bleeding. He was noted to be hypotensive, subsequently required IV resuscitation as well as PRBC transfusion and admitted in the intensive care unit. He has had extensive workup including bleeding scan which remained negative. Hematology/Oncology has been consulted to assist with the management. Of note, patient was presented initially with jaundice back in March and subsequently underwent extensive GI workup including ERCP and stenting. His CT scan done on May 07, 2018 revealed obstructive pancreatic mass at the pancreatic neck with encasement of the gastroduodenal artery and abutment of common hepatic and posterior hepatic artery. That CT also demonstrated indeterminate 0.6 cm suspicious lesion in the liver. Patient has not received any systemic treatment for the pancreatic cancer yet. PAST MEDICAL HISTORY 1. Recent diagnosis of unresectable pancreatic cancer. 2. Congestive heart failure. 3. Hypertension. 4. Coronary artery disease. 5. GERD. PAST SURGICAL HISTORY Positive for; 1. Coronary artery disease bypass. 2. AICD placement. 3. ERCP and stenting. FAMILY HISTORY: Noncontributory. SOCIAL HISTORY: Denies history of smoking, alcohol use, or illicit drug use. ALLERGIES: THE PATIENT IS ALLERGIC TO SULFA, PENICILLIN, AND TAL ASPIRIN. CURRENT MEDICATIONS: Reviewed as per electronic medical record. REVIEW OF SYSTEMS: Positive for fatigue, tiredness, and shortness of breath. Rest of the 14-point review of systems is negative. PHYSICAL EXAMINATION VITAL SIGNS: Reviewed as per electronic medical record. HEENT: PERRLA. Extraocular movements intact. Head atraumatic, normocephalic. NECK: Supple. CVS: S1 and S2 audible. RESPIRATORY: Decreased bilateral air entry. ABDOMEN: Positive bowel sounds. EXTREMITIES: Positive edema. NEURO: Patient is alert, awake, and oriented. LABORATORY DATA: White blood cell count of 8.27, hemoglobin 8.5, hematocrit 25.1, and platelets 139. BUN 8, creatinine 1.1, and INR 1.22. ASSESSMENT AND PLAN: Mr. Grijalva is a very pleasant 78-year-old gentleman with multiple medical problems including known history of coronary artery disease, GERD, congestive heart failure, and recent diagnosis of unresectable pancreatic cancer, now admitted due to GI bleed. He has required several units of transfusion including 2 units of PRBC today. His H and H is improved. I have reviewed his records, specifically CT scan revealing unresectable pancreatic cancer and possible metastatic disease to the liver. Overall, long-term prognosis is poor. He is a candidate for palliative chemotherapy, though he needs to improve from current episode of severe GI bleed as well as functional status needed to be determined further once his condition is improved. I have also discussed the option of best supportive care. Of note, patient is DNR/DNI. I will address and talk to him again tomorrow about goals of care. Meanwhile continue with the supportive care. I will continue to monitor the H and H very closely. Surgery consult has been obtained, though no active bleeding is identified and bleeding scan has been negative. At this point, I will start the patient on IV iron infusion which helps to stabilize his hemoglobin. Critical care time spent more than 35 minutes. Thank you for the consult. I will continue to be available. Please call with questions. Thank you, Dr. Hidalgo, for giving me the opportunity to participate in the care of this pleasant gentleman. Do not hesitate to call me if you have any further questions. Job#: [id number] EMAN[facility]
[2018-06-23] VITALS (44 sets, daily range): BP systolic 116–154; BP diastolic 53–81
[2018-06-23] MEDS: PANTOPRAZOL 40MG/SOD CHL 0.9% 50 ML IV SCH ×5 (01:00→16:46)
[2018-06-23] MEDS: PIPER-TAZ 3.375 GM 50 ML IV SCH ×4 (03:00→21:11)
[2018-06-23 05:09] LABS: BASOPHILS % 0.1 % (0.0-1.0); EOSINOPHILS # (AUTO) 0.3 (0.0-0.4); EOSINOPHILS % 3.5 % (0.0-6.0); HEMATOCRIT 22.9 % (38.2-49.6); HEMOGLOBIN 7.6 g/dL (14.0-18.0); LYMPHOCYTES # (AUTO) 1.4 (1.0-3.2); LYMPHOCYTES % 16.7 % (18.0-39.1); MEAN CORPUSCULAR HEMOGLOBIN 30.4 pg (28-32); MEAN CORPUSCULAR HGB CONC 33.2 g/dL (31-35); MEAN CORPUSCULAR VOLUME 91.6 fL (81-99); MONOCYTES # (AUTO) 0.7 (0.2-0.8); MONOCYTES % 8.6 % (4.4-11.3); NEUTROPHILS % 70.5 % (38.7-80.0); PLATELET COUNT 137 x10e3/uL (140-360); RED CELL DISTRIBUTION WIDTH 20.8 % (11.7-14.4)
[2018-06-23 05:30] LABS: ANION GAP 13.7 mmol/L (8-16); BLOOD UREA NITROGEN 14 mg/dL (7-26); BUN/CREATININE RATIO 14 (6-25); CALCIUM 7.7 mg/dL (8.4-10.2); CARBON DIOXIDE 18 mmol/L (22-29); CHLORIDE 112 mmol/L (98-107); EST GLOMERULAR FILTRATION RATE > 60 ML/MIN (60-); GLUCOSE 115 mg/dL (74-118); POTASSIUM 3.7 mmol/L (3.5-5.1); SODIUM 140 mmol/L (136-145)
[2018-06-23] MEDS: SODIUM CHLORIDE 0.9% 1000ML 1,000 ML IV SCH ×4 (06:12→16:12)
[2018-06-23] MEDS: INSULIN REGULAR, HUMAN 100 UNIT/1 ML 3ML VIAL SQ SCH ×4 (07:30→20:57)
[2018-06-23] MEDS: SUCRALFATE 1 GM/10 ML SUSP NG SCH ×4 (09:13→21:11)
[2018-06-23] MEDS: IRON SUCROSE 100 MG in SODIUM CHLORIDE 0.9% 100 ML 100 ML IV SCH (11:00)
--- NOTE | 2018-06-23 11:52 | Progress Note ---
DATE: 06/23/18 SUBJECTIVE: The patient reports no abdominal pain. Last bowel movement was yesterday. He is feeling hungry and would like to eat. REVIEW OF SYSTEMS GENERAL: No fever or chills. RESPIRATORY: No cough or expectoration. CVS: No chest pain or palpitation. INPATIENT MEDICATIONS: List reviewed. He is getting Protonix infusion at 8 mg per hour. He is also on piperacillin/tazobactam. PHYSICAL EXAMINATION VITAL SIGNS: Temperature 98.9, pulse 72, respirations 16, blood pressure 143/70, oxygen saturation 100% on 4 liter of nasal cannula. GENERAL: No apparent distress. HEENT: Oral mucosa is moist. Anicteric sclerae. ABDOMEN: Soft, nondistended, and nontender. No palpable mass or hernia. Positive bowel sounds. LABS: Hemoglobin has come down to 7.6 from 8.5, hematocrit 22.9 from 25.1, WBC remains 8.49, and platelet count 137. Sodium 140, potassium 3.7, chloride 112, bicarb 18, BUN 14, and glucose 115. Nuclear bleeding scan showed no evidence of active gastrointestinal bleeding. IMPRESSION: Upper gastrointestinal bleeding, which seems to have ceased. The source of bleeding is crater duodenal ulcer. PLAN 1. Since patient is hemodynamically stable, hemoglobin has dropped a little bit without any evidence of active melena. His last bowel movement was more than 12 hours ago. This further reassures that he is not having any active GI bleeding. Therefore, I allow him to be on clear liquid diet and monitor him for next 12 hours. I am taking the liberty to discontinue the intravenous Zosyn, he has already been on this for more than a week. He does not have any evidence of any kind of sepsis. 2. Advanced pancreatic cancer, inoperable, status post ERCP with palliative biliary stent placement to prevent future jaundice. Job#: [id number] [facility]
[2018-06-23 14:22] LABS: HEMATOCRIT 22.4 % (38.2-49.6); HEMOGLOBIN 7.6 g/dL (14.0-18.0)
--- NOTE | 2018-06-23 14:40 | Progress Note ---
DATE: June 23, 2018 CARDIOLOGY PROGRESS NOTE SUBJECTIVE: The patient denies chest pain or shortness of breath. He has not noted any further bleeding. Tagged RBC scan without evidence of active GI bleeding yesterday. OBJECTIVE VITALS: Temperature 98.9 degrees, pulse 72, respiratory rate 16, blood pressure 143/70, oxygen saturation 100% on 4 L nasal cannula. GENERAL: Chronically ill-appearing man in no acute distress. Awake and alert. LUNGS: Clear to auscultation bilaterally. No wheezes or crackles. CARDIOVASCULAR: Normal rate. Regular rhythm. No murmur. Normal S1 and S2. ABDOMEN: Soft and nontender. EXTREMITIES: No edema. CARDIAC MEDICATIONS: Simvastatin 20 mg p.o. at bedtime. LABS: WBC 8.49, hemoglobin 7.6, hematocrit 22.9, platelets 137. Sodium 140, potassium 3.7, chloride 112, CO2 18, BUN 14, creatinine 1. TELEMETRY: Normal sinus rhythm. IMPRESSION 1. Active gastrointestinal bleeding. 2. Nonsustained ventricular tachycardia. 3. 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 4. Chronic systolic heart failure, status post automated implanted cardioverter defibrillator. 5. Coronary artery disease, status post coronary artery bypass graft. 6. Elevated troponin. 7. Hypertension. 8. Acute kidney injury, resolved. 9. Benign prostatic hypertrophy. 10. Pancreatic cancer. RECOMMENDATIONS: Patient is not a candidate for anticoagulation or antiplatelet therapy due to GI bleeding. Continue statin. Transfuse as needed. Per oncology, patient's long-term prognosis is poor and recommendation would be for palliative treatment if he is a candidate. Transfuse as necessary to keep hemoglobin above 7. Monitor patient closely on telemetry. Watch volume status closely given his systolic heart failure. He may need intermittent Lasix to keep patient net even. Thank you for this consult. We will continue to follow. Job#: [id number] PITER [facility]UR[facility]
[2018-06-23 20:22] LABS: ANION GAP 13.3 mmol/L (8-16); BLOOD UREA NITROGEN 12 mg/dL (7-26); BUN/CREATININE RATIO 13 (6-25); CALCIUM 7.9 mg/dL (8.4-10.2); CARBON DIOXIDE 19 mmol/L (22-29); CHLORIDE 110 mmol/L (98-107); CREATININE, SERUM 0.93 mg/dL (0.72-1.25); EST GLOMERULAR FILTRATION RATE > 60 ML/MIN (60-); GLUCOSE 100 mg/dL (74-118); MAGNESIUM 1.2 MG/DL (1.3-2.1); POTASSIUM 3.3 mmol/L (3.5-5.1); SODIUM 139 mmol/L (136-145)
[2018-06-23] MEDS: SIMVASTATIN 20 MG TAB PO SCH (21:11)
[2018-06-24] VITALS (31 sets, daily range): BP systolic 104–161; BP diastolic 54–79
[2018-06-24] MEDS: SODIUM CHLORIDE 0.9% 1000ML 1,000 ML IV SCH ×7 (01:44→21:33)
[2018-06-24] MEDS: PANTOPRAZOL 40MG/SOD CHL 0.9% 50 ML IV SCH ×5 (01:45→21:16)
[2018-06-24] MEDS: PIPER-TAZ 3.375 GM 50 ML IV SCH (03:00)
[2018-06-24 04:53] LABS: BASOPHILS % 0.3 % (0.0-1.0); EOSINOPHILS # (AUTO) 0.3 (0.0-0.4); EOSINOPHILS % 3.4 % (0.0-6.0); HEMATOCRIT 22.1 % (38.2-49.6); HEMOGLOBIN 7.6 g/dL (14.0-18.0); LYMPHOCYTES # (AUTO) 1.7 (1.0-3.2); LYMPHOCYTES % 22.1 % (18.0-39.1); MEAN CORPUSCULAR HEMOGLOBIN 31.7 pg (28-32); MEAN CORPUSCULAR HGB CONC 34.4 g/dL (31-35); MEAN CORPUSCULAR VOLUME 92.1 fL (81-99); MONOCYTES # (AUTO) 0.6 (0.2-0.8); MONOCYTES % 8.1 % (4.4-11.3); NEUTROPHILS # (AUTO) 5.1 (2.1-6.9); NEUTROPHILS % 65.6 % (38.7-80.0); PLATELET COUNT 156 x10e3/uL (140-360); RED CELL DISTRIBUTION WIDTH 20.6 % (11.7-14.4)
[2018-06-24 05:11] LABS: ANION GAP 16.2 mmol/L (8-16); BLOOD UREA NITROGEN 11 mg/dL (7-26); BUN/CREATININE RATIO 12 (6-25); CALCIUM 7.9 mg/dL (8.4-10.2); CARBON DIOXIDE 17 mmol/L (22-29); CHLORIDE 108 mmol/L (98-107); CREATININE, SERUM 0.92 mg/dL (0.72-1.25); EST GLOMERULAR FILTRATION RATE > 60 ML/MIN (60-); GLUCOSE 89 mg/dL (74-118); POTASSIUM 3.2 mmol/L (3.5-5.1); SODIUM 138 mmol/L (136-145)
[2018-06-24] MEDS: SUCRALFATE 1 GM/10 ML SUSP NG SCH ×4 (09:00→21:00)
[2018-06-24] MEDS ORDERED: MAGNESIUM SULFATE 2GM/50ML 100 ML IV ONE (10:00)
[2018-06-24] MEDS: IRON SUCROSE 100 MG in SODIUM CHLORIDE 0.9% 100 ML 100 ML IV SCH (10:07)
--- NOTE | 2018-06-24 12:47 | Progress Note ---
DATE: June 24, 2018 CARDIOLOGY PROGRESS NOTE SUBJECTIVE: Patient denies chest pain or shortness of breath. He had episode of nonsustained ventricular tachycardia yesterday evening. OBJECTIVE VITAL SIGNS: Temperature 98 degrees, pulse 68, respiratory rate 16, blood pressure 106/54, oxygen saturation 95% on room air. GENERAL: Chronically ill-appearing man, in no acute distress, awake, and alert. LUNGS: Clear to auscultation bilaterally. No wheezes or crackles. CARDIOVASCULAR: Normal rate. Regular rhythm. No murmur. Normal S1 and S2. ABDOMEN: Soft, nontender. EXTREMITIES: No edema. CARDIAC MEDICATION: Simvastatin 20 mg p.o. q.h.s. LABS: WBC 7.7, hemoglobin 7.6, hematocrit 22.1, platelets 156. Sodium 138, potassium 3.2, chloride 108, CO2 of 17, BUN 11, creatinine 0.92. TELEMETRY: Normal sinus rhythm with PACs. Nonsustained ventricular tachycardia as noted. IMPRESSION 1. Acute gastrointestinal bleeding. 2. Nonsustained ventricular tachycardia. 3. 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 4. Chronic systolic heart failure, status post automated implantable cardioverter-defibrillator. 5. Coronary artery disease, status post coronary artery bypass grafting. 6. Elevated troponins. 7. Hypertension. 8. Acute kidney disease, resolved. 9. Benign prostatic hypertrophy. 10. Pancreatic cancer. RECOMMENDATIONS: The patient is not a candidate for antiplatelet therapy due to GI bleeding, transfuse as needed. Per oncology, patient's long-term prognosis is poor. Patient is planned to discharge on hospice, if that his case, we will discontinue simvastatin on discharge. Monitor patient closely on telemetry. Replete electrolytes if decision is for hospice placement. He will need his ICD deactivated once he his out of hospital. DNR is signed. Thank you for this consult. We will continue to follow. Job#: [id number] RODGER VENTURA
[2018-06-24] MEDS ORDERED: POTASSIUM CHLORIDE 20MEQ/100ML 200 ML IV ONE (14:00)
[2018-06-24 16:26] LABS: ALANINE AMINOTRANSFERASE 8 IU/L (0-55); ALBUMIN 2.4 g/dL (3.5-5.0); ALBUMIN/GLOBULIN RATIO 0.9 (0.8-2.0); ALKALINE PHOSPHATASE 48 IU/L (40-150); ANION GAP 17.7 mmol/L (8-16); BLOOD UREA NITROGEN 10 mg/dL (7-26); BUN/CREATININE RATIO 11 (6-25); CALCIUM 8.2 mg/dL (8.4-10.2); CARBON DIOXIDE 16 mmol/L (22-29); CHLORIDE 107 mmol/L (98-107); CREATININE, SERUM 0.94 mg/dL (0.72-1.25); EST GLOMERULAR FILTRATION RATE > 60 ML/MIN (60-); GLUCOSE 102 mg/dL (74-118); MAGNESIUM 2.2 MG/DL (1.3-2.1); POTASSIUM 3.7 mmol/L (3.5-5.1); SODIUM 137 mmol/L (136-145)
[2018-06-24] MEDS ORDERED: ROCURONIUM BROMIDE 10 MG/ML 5ML VIAL ONE (17:17)
[2018-06-24] MEDS ORDERED: EPHEDRINE SULFATE INJ 50 MG/10 ML SYR ONE (17:17)
[2018-06-24] MEDS ORDERED: PROPOFOL IV EMULSION 10 MG/ML 50 ML VIAL ONE (17:17)
[2018-06-24] MEDS ORDERED: LIDOCAINE HCL 2% LOCAL INJ 5 ML SDV VIAL INJ ONE (17:17)
[2018-06-24] MEDS ORDERED: FENTANYL CITRATE/PF 100MCG/2 ML INJ ONE (17:19)
[2018-06-24] MEDS ORDERED: HYDROMORPHONE 2MG/ML 2 MG/ML ML IV PRN (17:45)
[2018-06-24] MEDS ORDERED: POTASSIUM CHLORIDE 20 MEQ TAB CR PO ONE (18:00)
[2018-06-24 18:19] LABS: HEMATOCRIT 19.3 % (38.2-49.6)
[2018-06-24 18:22] LABS: HEMOGLOBIN 6.4 g/dL (14.0-18.0)
[2018-06-24] MEDS ORDERED: FUROSEMIDE INJ 10 MG/ML 2 ML VIAL IV PRN (19:45)
[2018-06-24] MEDS ORDERED: SODIUM CHLORIDE 0.9% 250ML 250 ML IV ONE ×2 (20:00→20:15)
[2018-06-24] MEDS ORDERED: PROPOFOL IV EMULSION 10MG/ML 100 ML ONE (20:22)
[2018-06-24] MEDS: PROPOFOL IV EMULSION 10MG/ML 100 ML IV PRN (20:45)
--- NOTE | 2018-06-24 20:50 | Progress Note ---
DATE: June 24, 2018 GI PROGRESS REPORT SUBJECTIVE: Patient has had 1 bout of melena. He became diaphoretic, felt like almost going to pass out. Blood pressure remains stable with systolic blood pressure of 104. He is not tachycardic. He is also complaining of some midepigastric pain. REVIEW OF SYSTEMS GENERAL: No fever or chills. RESPIRATORY: No cough or expectoration. CVS: No chest pain or palpitations. PHYSICAL EXAMINATION VITAL SIGNS: Blood pressure dropped down to 104/78, temperature 98, pulse 94, respirations 16 to 18, oxygen saturation 97% on 2 liter of nasal cannula. GENERAL: He is gross pallor. HEENT: Oral mucosa is moist. CVS: S1 and S2 regular. LUNGS: Bilateral occasional rales at both bases. ABDOMEN: Soft and nondistended. Midepigastric and right upper quadrant tenderness on deep palpation without rebound, rigidity, or guarding. Positive bowel sounds. EXTREMITIES: Warm. No leg edema. LABS: Hemoglobin has dropped down to 6.4 from 7.6, WBC 7.70, hematocrit 19.3, and platelet count 156. Sodium 137, potassium 3.7, chloride 107, bicarb 16, BUN 10, and creatinine 0.94. Liver enzymes showed a total bilirubin 0.7, AST 20, ALT 8, and alkaline phosphatase 48. IMPRESSION 1. Acute upper gastrointestinal bleeding, likely from duodenal ulcer. 2. Advanced pancreatic cancer with focus in the liver highly suspicious for metastasis. Pancreatic vasculatures are also involved. Therefore, this mass is inoperable. 3. Congestive heart failure with low ejection fraction. Poor cardiac result. PLAN: Urgent upper endoscopy. Although, patient and his family has decided for hospice care. However, Mr. Grijalva would like to know the source of the bleeding and asking me to do endoscopy to find out the cause of recurrent bleeding and see if this can be endoscopically treated. Rest of the care as per primary team. Job#: [id number] [facility]
[2018-06-24] MEDS: SIMVASTATIN 20 MG TAB PO SCH (21:00)
--- NOTE | 2018-06-24 21:33 | Diagnostic Imaging Report ---
CHEST SINGLE (PORTABLE), 06/24/2018 8:09 PM Technique: CHEST SINGLE (PORTABLE) Comparison: None available. Clinical history: \S\NG POSITION CONFIRMATION \S\[id number] \S\2039 Findings: See Impression Impression: 1. Lines/Tubes: NG tube tip overlies the expected proximal stomach with side-port near the GE junction. Partially imaged left chest wall ICD, median sternotomy wires, right PICC, ? ET tube. Common bile duct stent overlies the right upper quadrant. 2. Mild diffuse gaseous distention of bowel, presumably ileus. Right lateral and lower abdomen are excluded. 3. Suggestion of diffuse and left basilar pulmonary opacities, limited by technique and low volumes. Signed by: Dr Chasidy Silva MD on 06/24/2018 9:29 PM
[2018-06-24] MEDS: SODIUM CHLORIDE 0.9% 250ML IRRIG IR SCH (21:57)
[2018-06-25] VITALS (79 sets, daily range): BP systolic 69–148; BP diastolic 39–79
[2018-06-25] MEDS: SODIUM CHLORIDE 0.9% 250ML IRRIG IR SCH ×6 (00:07→21:00)
[2018-06-25 01:01] LABS: HEMATOCRIT 22.3 % (38.2-49.6); HEMOGLOBIN 7.3 g/dL (14.0-18.0)
[2018-06-25] MEDS: PANTOPRAZOL 40MG/SOD CHL 0.9% 50 ML IV SCH ×5 (01:13→17:58)
[2018-06-25] MEDS ORDERED: SODIUM CHLORIDE 0.9% 250ML 250 ML IV ONE ×2 (01:30→22:30)
[2018-06-25] MEDS: SODIUM CHLORIDE 0.9% 1000ML 1,000 ML IV SCH ×2 (04:35→22:30)
[2018-06-25] MEDS: PROPOFOL IV EMULSION 10MG/ML 100 ML IV PRN ×2 (04:36→20:00)
[2018-06-25 05:52] LABS: BASOPHILS % 0.2 % (0.0-1.0); EOSINOPHILS # (AUTO) 0.1 (0.0-0.4); HEMATOCRIT 25.1 % (38.2-49.6); HEMOGLOBIN 8.4 g/dL (14.0-18.0); LYMPHOCYTES # (AUTO) 1.3 (1.0-3.2); LYMPHOCYTES % 14.1 % (18.0-39.1); MEAN CORPUSCULAR HEMOGLOBIN 32.1 pg (28-32); MEAN CORPUSCULAR HGB CONC 33.5 g/dL (31-35); MEAN CORPUSCULAR VOLUME 95.8 fL (81-99); MONOCYTES # (AUTO) 0.8 (0.2-0.8); NEUTROPHILS # (AUTO) 7.1 (2.1-6.9); NEUTROPHILS % 75.9 % (38.7-80.0); PLATELET COUNT 148 x10e3/uL (140-360); RED BLOOD COUNT 2.62 x10e6/uL (4.3-5.7)
[2018-06-25] MEDS ORDERED: FUROSEMIDE INJ 10 MG/ML 2 ML VIAL IV ONE ×2 (06:00→23:45)
[2018-06-25 06:20] LABS: BLOOD UREA NITROGEN 12 mg/dL (7-26); BUN/CREATININE RATIO 11 (6-25); CALCIUM 7.1 mg/dL (8.4-10.2); CARBON DIOXIDE 16 mmol/L (22-29); CHLORIDE 109 mmol/L (98-107); CREATININE, SERUM 1.11 mg/dL (0.72-1.25); EST GLOMERULAR FILTRATION RATE > 60 ML/MIN (60-); GLUCOSE 130 mg/dL (74-118); SODIUM 136 mmol/L (136-145)
[2018-06-25] MEDS: SUCRALFATE 1 GM/10 ML SUSP NG SCH ×4 (08:29→21:00)
[2018-06-25 08:41] LABS: ABG HCO3 17 mmol/L (23-28); ABG PCO2 28 mmHg (41-51); ABG PO2 151 mmHg (80-105)
--- NOTE | 2018-06-25 08:43 | Diagnostic Imaging Report ---
PROCEDURE: A single AP view of the chest. COMPARISON: 06/24/2018. INDICATIONS: CHF FINDINGS: Endotracheal tube, enteric tube, right upper extremity PICC are stable in position. A Lung volumes remain low with retrocardiac airspace disease, likely atelectasis. No overt pulmonary edema. Stable cardiomediastinal contour with postsurgical changes in the mediastinum and a left subclavian approach implantable cardiac device. No acute osseous abnormality. Metallic biliary stent is again noted projecting over the right upper quadrant. IMPRESSION: Stable position of support lines and tubes. Retrocardiac air space disease, likely atelectasis. Low lung volumes without consolidation or overt pulmonary edema. Dictated by: Ceasar Schwarz M.D. on 06/25/2018 at 8:51 Electronically approved by: Ceasar Schwarz M.D. on 06/25/2018 at 8:51
[2018-06-25] MEDS ORDERED: SODIUM BICARBONATE 8.4% INJ 50 ML SYR IV STA (08:46)
[2018-06-25] MEDS ORDERED: SODIUM BICARBONATE 8.4% SYRING 50 ML ONE (08:47)
--- NOTE | 2018-06-25 11:53 | Consultation ---
DATE OF CONSULTATION: PULMONARY CONSULTATION Patient of Dr. Doug Hidalgo, Dr. Patel and Dr. Rodriguez. An unfortunate 78-year-old gentleman admitted to the hospital on June 17, 2018, with dark stool. History of pancreatic cancer diagnosed in April. Had a biliary stent placed at that time. History of congestive heart failure, coronary disease, AICD placed in October of this year, biliary stent placed on May 07, 2018, history of old stroke with left-sided weakness. ALLERGIES: HISTORY OF ALLERGY TO SULFA, ASPIRIN AND KEFLEX. HOME MEDICATIONS: Have included Benicar and Lovastatin. He had coronary bypass surgery in 1996. He has had surgery for club foot issues. No alcohol for 30 years. FAMILY HISTORY: Positive for pancreatic cancer. PHYSICAL EXAMINATION GENERAL: He is a well-developed white intubated, awake and alert. HEENT: Head is normocephalic and atraumatic. Eyes: Extraocular movements intact. LUNGS: Diminished breath sounds. Clear anteriorly. HEART: Regular rhythm. Nonsustained V-tach has been noted during this admission. ABDOMEN: Nontender. EXTREMITIES: Nonedematous. ASSESSMENT 1. The patient with unresectable pancreatic cancer. 2. Upper gastrointestinal bleed with duodenal ulcer and active bleeding. 3. Biliary stent. 4. Nonsustained ventricular tachycardia with automatic implanted cardioverter defibrillator. 5. Congestive heart failure. The patient appears stable. No further bleeding has been reported. Will plan rapid weaning. Congestive heart failure as per cardiology. Thank you for this kind referral. Job#: [id number] [facility]
[2018-06-25] MEDS: CITRIC ACID/SODIUM CITRATE 30 ML UDC PO SCH (12:28)
--- NOTE | 2018-06-25 12:45 | Progress Note ---
DATE: June 25, 2018 CARDIOLOGY PROGRESS NOTE SUBJECTIVE: Patient has been extubated. Plan for discharge to hospice tomorrow. OBJECTIVE VITAL SIGNS: Pulse 77, respiratory rate 18, blood pressure 132/63, satting 100% on 2 liters. GENERAL: Chronically ill-appearing man in no acute distress. CARDIOVASCULAR: Regular rate and rhythm. No murmurs, rubs or gallops. Normal S1 and S2. Palpable carotid pulses. Palpable radial pulses. LUNGS: Clear to auscultation. No respiratory distress. ABDOMEN: Soft, nontender. NEURO AND PSYCH: Alert and awake. LABORATORY DATA: Reviewed. TELEMETRY DATA: Reviewed. Shows normal sinus rhythm with PACs. CARDIAC MEDICATIONS: Reviewed. IMPRESSION 1. Acute gastrointestinal bleeding. 2. Nonsustained ventricular tachycardia. 3. 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 4. Chronic systolic heart failure, status post implantable cardioverter-defibrillator placement. 5. Coronary artery disease, status post coronary artery bypass surgery in the past. 6. Elevated troponin. 7. Hypertension. 8. Acute kidney disease. 9. BPH. 10. Pancreatic cancer. RECOMMENDATIONS: The patient is being discharged to hospice likely tomorrow given his advanced pancreatic cancer, not a candidate for additional cardiovascular medications. Will discontinue his simvastatin at this point. Will ask device reps to come by and deactivate his ICD shock function as he is being discharged to hospice. Thank you for this consult. We will sign off. Job#: [id number]
[2018-06-25 13:12] LABS: HEMATOCRIT 21.4 % (38.2-49.6); HEMOGLOBIN 7.1 g/dL (14.0-18.0)
[2018-06-25] MEDS ORDERED: SODIUM CHLORIDE 0.9% 250ML 250 ML IV PRN (13:30)
[2018-06-25] MEDS ORDERED: FENTANYL CITRATE/PF 100MCG/2 ML INJ ONE (20:04)
[2018-06-25] MEDS ORDERED: MIDAZOLAM HCL 2 MG/2 ML VIAL ONE (20:04)
[2018-06-25] MEDS ORDERED: IOPAMIDOL 370 MG/ML 200 ML INFUS..BTL INJ ONE ×2 (20:04→20:20)
[2018-06-25] MEDS ORDERED: LIDOCAINE HCL 2% LOCAL 20 ML VIAL ONE (20:04)
[2018-06-25] MEDS ORDERED: HEPARIN SOD/SOD CHLORIDE 1,000 ML ONE (20:04)
[2018-06-25] MEDS: SIMVASTATIN 20 MG TAB PO SCH (21:00)
[2018-06-25] MEDS ORDERED: PROPOFOL IV EMULSION 10MG/ML 100 ML ONE (21:14)
--- NOTE | 2018-06-25 21:28 | Progress Note ---
DATE: June 25, 2018 SUBJECTIVE: Patient has had a couple of episodes of melena. Hemoglobin further dropped. He became pale and diaphoretic. REVIEW OF SYSTEMS GENERAL: No fever or chills, but lethargy and drowsiness. CVS: No chest pain or palpitation. RESPIRATORY: No cough or expectoration. MEDICATIONS: Reviewed as per NOV. He is on intravenous pantoprazole infusion. PHYSICAL EXAMINATION VITAL SIGNS: Temperature 98.2, pulse 80, respirations 16, blood pressure 130/73, oxygen saturation 100% on 2 L of nasal cannula. GENERAL: Pale, weak, lethargic. HEEN: Oral mucosa is moist. ABDOMEN: Soft. Mild upper quadrant tenderness on deep palpation. No rebound, rigidity or guarding. Positive bowel sounds. LABS: Hemoglobin has dropped from 8.4 to 7.1. IMPRESSION: Recurrent upper gastrointestinal bleeding from duodenal ulcer. He has had emergency endoscopy yesterday with cauterization of oozing duodenal ulcer, complete hemostasis was achieved. Patient, however, has recurrence of the bleeding. PLAN: Urgent IR guided angioembolization of gastroduodenal artery. I spoke to the IR attending button machine operator. Patient's procedure will be performed tonight. In the interim, we will continue Protonix infusion. COMMENT: Patient was successfully extubated today and he was allowed clear liquid diet, but in the afternoon, he had a few bouts of melena with drop in blood pressure. Job#: [id number]
[2018-06-25 22:19] LABS: HEMATOCRIT 18.4 % (38.2-49.6); HEMOGLOBIN 6.2 g/dL (14.0-18.0)
[2018-06-25] MEDS: FENTANYL CITRATE INJ 2,000 MCG in SODIUM CHLORIDE 0.9% 250ML 210 ML IV SCH (22:30)
[2018-06-25] MEDS: NOREPINEPHRINE INJ 4MG/4ML 8 MG in DEXTROSE 5% 250ML 242 ML IV SCH (22:30)
--- NOTE | 2018-06-25 23:00 | Diagnostic Imaging Report ---
EXAMINATION: CHEST SINGLE (PORTABLE) INDICATION: Intubated, rapid response. COMPARISON: 06/25/2018 at 5:50 AM FINDINGS: TUBES and LINES: Endotracheal tube is visualized in place 4.5 cm above the td. An ICD device is present. Right upper extremity PICC line is stable with tip overlying the SVC. Partially visualized biliary stent is in place. LUNGS: Lungs are not well inflated. There are bibasilar atelectasis. There is mild prominence of the central pulmonary vasculature, consistent with pulmonary venous congestion. Confluent opacity in the left lung may represent asymmetric edema versus developing infection. PLEURA: No pleural effusion or pneumothorax. HEART AND MEDIASTINUM: The cardiomediastinal silhouette is unremarkable. BONES AND SOFT TISSUES: No acute osseous lesion. Soft tissues are unremarkable. UPPER ABDOMEN: No free air under the diaphragm. IMPRESSION: 1. Asymmetric opacity in the left upper lung and mid lung are suspicious for developing infection. 2. Endotracheal tube, ICD, right upper extremity PICC line and partially visualized biliary stent. Signed by: Dr. Carroll Solis M.D. on 06/25/2018 10:56 PM
[2018-06-25] MEDS ORDERED: FUROSEMIDE INJ 10 MG/ML 2 ML VIAL IV SCH (23:45)
[2018-06-26] VITALS (90 sets, daily range): BP systolic 90–165; BP diastolic 46–97
[2018-06-26] MEDS: SODIUM CHLORIDE 0.9% 250ML IRRIG IR SCH ×6 (01:00→21:00)
[2018-06-26 01:48] LABS: ABG HCO3 21 mmol/L (23-28); ABG PCO2 34 mmHg (41-51); ABG PO2 214 mmHg (80-105)
[2018-06-26] MEDS: PANTOPRAZOL 40MG/SOD CHL 0.9% 50 ML IV SCH ×5 (03:00→21:00)
[2018-06-26 05:33] LABS: BASOPHILS % 0.3 % (0.0-1.0); EOSINOPHILS # (AUTO) 0.1 (0.0-0.4); EOSINOPHILS % 0.9 % (0.0-6.0); HEMATOCRIT 28.5 % (38.2-49.6); HEMOGLOBIN 9.9 g/dL (14.0-18.0); LYMPHOCYTES # (AUTO) 2.3 (1.0-3.2); MEAN CORPUSCULAR HGB CONC 34.7 g/dL (31-35); MEAN CORPUSCULAR VOLUME 89.3 fL (81-99); MONOCYTES # (AUTO) 1.4 (0.2-0.8); MONOCYTES % 9.1 % (4.4-11.3); NEUTROPHILS # (AUTO) 11.2 (2.1-6.9); NEUTROPHILS % 73.2 % (38.7-80.0); PLATELET COUNT 142 x10e3/uL (140-360); RED BLOOD COUNT 3.19 x10e6/uL (4.3-5.7); RED CELL DISTRIBUTION WIDTH 17.1 % (11.7-14.4)
[2018-06-26 05:45] LABS: ANION GAP 12.5 mmol/L (8-16); CALCIUM 7.1 mg/dL (8.4-10.2); CREATININE, SERUM 1.24 mg/dL (0.72-1.25); POTASSIUM 3.5 mmol/L (3.5-5.1)
--- NOTE | 2018-06-26 06:41 | Diagnostic Imaging Report ---
EXAMINATION: CHEST SINGLE (PORTABLE) INDICATION: Intubation COMPARISON: 06/25/2018 at 2213 hours FINDINGS: TUBES and LINES: Endotracheal tube is visualized in place 4.5 cm above the td. An ICD device is present. Right upper extremity PICC line is stable with tip overlying the SVC. Partially visualized biliary stent is in place. LUNGS: Lungs are not well inflated. Improved atelectasis. There is mild prominence of the central pulmonary vasculature, consistent with pulmonary venous congestion. Confluent opacity in the left lung may represent asymmetric edema versus developing infection. PLEURA: No pleural effusion or pneumothorax. HEART AND MEDIASTINUM: The cardiomediastinal silhouette is unremarkable. There are atherosclerotic calcifications within the aorta. BONES AND SOFT TISSUES: No acute osseous lesion. Soft tissues are unremarkable. UPPER ABDOMEN: No free air under the diaphragm. IMPRESSION: 1. Asymmetric opacity in the left upper lung has resolved compatible with improved atelectasis. 2. Endotracheal tube, ICD, right upper extremity PICC line and partially visualized biliary stent. Signed by: Dr. Carroll Solis M.D. on 06/26/2018 6:38 AM
[2018-06-26] MEDS: SUCRALFATE 1 GM/10 ML SUSP NG SCH ×4 (07:30→21:00)
[2018-06-26] MEDS: CITRIC ACID/SODIUM CITRATE 30 ML UDC PO SCH ×2 (08:00→11:34)
--- NOTE | 2018-06-26 12:15 | Progress Note ---
DATE: June 26, 2018 CARDIOLOGY PROGRESS NOTE SUBJECTIVE: Patient became increasingly short of breath and hypotensive yesterday. He continued to have bloody bowel movements and was found to be more anemic. Patient was therefore transfused 2 units PRBC. IR was consulted and patient was taken to the catheterization laboratory for gastroduodenal artery coil embolization. While in the rn cardiac cath, rapid response was called due to increasing dyspnea and hypoxia. Patient was subsequently intubated. However, patient has continued to have dark colored bloody output from the OG tube. Patient is therefore planned for tagged RBC scan today. Currently, patient remains intubated and sedated. OBJECTIVE VITAL SIGNS: Temperature 98.5 degrees, pulse 88, respiratory rate 18, blood pressure 122/62, oxygen saturation 100% on mechanical ventilation. GENERAL: Chronically ill-appearing man, no acute distress, intubated and sedated. LUNGS: Clear to auscultation bilaterally. No wheezes or crackles. CARDIOVASCULAR: Normal rate, regular rhythm. No murmur. Normal S1, S2. ABDOMEN: Soft, nontender. EXTREMITIES: No edema. CARDIAC MEDICATIONS: Simvastatin 20 mg p.o. at bedtime. LABS: WBC 15.31, hemoglobin 9.9, hematocrit 28.5, platelets 142. Sodium 138, potassium 3.8, chloride 110, CO2 of 19, BUN 22, creatinine 1.24. TELEMETRY: Normal sinus rhythm. IMPRESSION 1. Acute gastrointestinal bleeding. 2. Ventricular arrhythmias, status post defibrillation by automatic implantable cardioverter-defibrillator during admission. 3. 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 4. Chronic systolic heart failure, status post automatic implantable cardioverter-defibrillator. 5. Coronary artery disease, status post coronary artery bypass grafting. 6. Elevated troponin. 7. Hypertension. 8. Acute kidney injury. 9. Pancreatic cancer. RECOMMENDATIONS: Given patient's decision to be discharged on hospice, the patient's AICD has been turned off. While his DNR is rescinded, we will monitor patient closely on telemetry. Place pads for defibrillation if necessary. In the meantime, patient is planned for tagged RBC scan today. No further cardiac evaluation is indicated at this time and he is not a candidate for antiplatelet or anticoagulation due to his active bleeding. Thank you for this consult. We will continue to follow. Job#: [id number] [facility]
[2018-06-26] MEDS: PROPOFOL IV EMULSION 10MG/ML 100 ML IV PRN ×2 (12:17→23:30)
[2018-06-26] MEDS: SODIUM CHLORIDE 0.9% 1000ML 1,000 ML IV SCH (12:32)
[2018-06-26 12:39] LABS: HEMATOCRIT 26.4 % (38.2-49.6); HEMOGLOBIN 9.1 g/dL (14.0-18.0)
--- NOTE | 2018-06-26 13:02 | Diagnostic Imaging Report ---
PROCEDURE:SPECIAL PROCEDURE IN OUTREACH LIBRARIAN COMPARISON:[facility], CT, CT ABDOMEN/PELVIS W, 05/07/2018, 19:00. [facility], Alberto STEPHENS I BLEED, 06/22/2018, 17:19. INDICATIONS:Patient with a history of cancer of the pancreas who had recent change of a plastic biliary stent for a metal stent. At endoscopy a duodenal ulcer was detected. This apparently has bled and the patient has had repeat emergent endoscopy with attempts at cauterization of the ulcer. Patient has had 2 reported melanoma stools this date. GI bleeding study was performed 3 days prior which was negative for active hemorrhage. Gastroduodenal embolization is requested on an emergent basis. SEDATION: 1 mg of Versed and 25 mcg of fentanyl. DESCRIPTION: Percutaneous puncture of the right common femoral artery was accomplished with a 21 gauge skinny needle following local anesthesia with 1% Xylocaine. A 0.018 " wire was then advanced into the vascular tree followed by a micropuncture sheath. Through the micropuncture sheath a 0.035 " 3 mm J-wire was advanced into the aorta. A 5 Tanzanian introducer sheath was then placed in the groin. A 5 Tanzanian Omni Flush catheter was advanced through the introducer sheath for flush aortogram. The catheter was exchanged for a 5 Tanzanian Cobra catheter. Selective catheterization of the celiac trunk utilizing a 0.035 " angled tip Glidewire and the Cobra catheter was accomplished. Catheter was then advanced into the proper hepatic artery and a microcatheter was advanced through the Cobra catheter. Microcatheter was then placed into the gastroduodenal artery. Contrast was injected. Following this the microcatheter was withdrawn slightly and three 3-2 mm Tornado coils were placed. Then three 5-3 mm tornado coils were placed into the gastroduodenal artery. At this time the patient became hypotensive and O2 saturation dropped to 80 and blood pressure to 49 mmHg. A rapid response was called and the patient was resuscitated with fluid challenge and intubation. Subsequent O2 saturation improved to 92%. Following the rapid response the microcatheter was noted to be occluded. Therefore the microcatheter was removed and a subsequent post embolization angiogram run through the 5 Tanzanian Cobra catheter was accomplished. The Cobra catheter was then removed and an Angio-Seal was placed in the right common femoral artery. FINDINGS: 1. The proper hepatic artery and gastroduodenal artery are irregular likely secondary to vascular invasion. 2. Moderate right renal artery stenosis. The kidneys are small. 3. Initial subselective catheterization of the gastroduodenal artery with injection shows extravasation within the peritoneal cavity. 4. Microcatheter was withdrawn with subsequent successful gastroduodenal artery coil embolization. 5. Post embolization angiogram following intubation and fluid challenge resuscitation shows occlusion of the gastroduodenal artery. Alonzo Greer D.O. Dictated by: Alonzo Greer D.O. on 06/26/2018 at 13:10 Electronically approved by: Alonzo Greer D.O. on 06/26/2018 at 13:10
--- NOTE | 2018-06-26 15:03 | Diagnostic Imaging Report ---
Tagged-RBC GI Bleed Study Clinical information: 78-year-old male with episodes of melena and fall in hemoglobin. Known duodenal ulcer. Comparison: Prior tagged-RBC GI bleed study 06/22/2018 Discussion: The patient's own red blood cells were labeled with 25 mCi of technetium-99m pertechnetate using the in vitro method (UltraTag). Dynamic images of the abdomen were obtained through 60 minutes. Distribution of tracer activity appears physiologic throughout the abdomen. No abnormal accumulation of tracer is seen within the gastrointestinal lumen. Impression: No scan evidence of active gastrointestinal bleeding at this time. No change from prior study of 06/22/2018. Signed by: Dr. Aruna Baeza M.D. on 06/26/2018 3:00 PM
[2018-06-26 17:35] LABS: HEMATOCRIT 24.6 % (38.2-49.6); HEMOGLOBIN 8.4 g/dL (14.0-18.0)
--- NOTE | 2018-06-26 19:33 | Progress Note ---
DATE: June 26, 2018 SUBJECTIVE: Patient underwent angioembolization of gastroduodenal artery by interventional radiologist yesterday. Postprocedure, patient went into respiratory decompensation requiring immediate intubation. Patient is on mechanical ventilation since then. He is getting intravenous Protonix infusion. NG draining dark blood. He has had 1 melanotic stool today. REVIEW OF SYSTEMS: Unobtainable, patient is on respiratory support. MEDICATIONS: He is on intravenous PPI along with IV fluids. PHYSICAL EXAMINATION: VITAL SIGNS: Temperature 98.9, pulse 86, respirations 16, blood pressure 112/51, oxygen saturation 100% on current ventilator settings. HEENT: Oral mucosa is moist. NG in place. Anicteric sclerae. ABDOMEN: Soft, nondistended. No palpable mass or hernia. Bowel sounds present. LABS: Hemoglobin has come down from 9.9 to 9.1 to 8.4. IMPRESSION: Upper gastrointestinal bleed from crater duodenal ulcer, status post upper endoscopy with cauterization of the ulcer, followed by recurrence of bleeding that required angioembolization of gastroduodenal artery. Patient is currently intubated. Nasogastric barely draining any dark blood. One melanotic stool. Hemoglobin slowly has drifted down, but remains stable. PLAN: Continue present medical management. Watch for any gross GI bleeding that will be manifested as further increase in bloody return to the NG or melena or hematochezia. Continue PPI infusion. Reassess him tomorrow for extubation. Case discussed with Dr. Holden as well as Dr. Hidalgo. Patient also has had a bleeding scan today, which was negative. Job#: [id number]
[2018-06-26] MEDS: SIMVASTATIN 20 MG TAB PO SCH (21:00)
[2018-06-26] MEDS: FENTANYL CITRATE INJ 2,000 MCG in SODIUM CHLORIDE 0.9% 250ML 210 ML IV SCH (22:30)
[2018-06-26] MEDS: NOREPINEPHRINE INJ 4MG/4ML 8 MG in DEXTROSE 5% 250ML 242 ML IV SCH (22:30)
[2018-06-27] VITALS (80 sets, daily range): BP systolic 104–149; BP diastolic 51–80
[2018-06-27] MEDS: PANTOPRAZOL 40MG/SOD CHL 0.9% 50 ML IV SCH ×2 (00:32→05:00)
[2018-06-27] MEDS: SODIUM CHLORIDE 0.9% 1000ML 1,000 ML IV SCH ×3 (00:32→19:15)
[2018-06-27] MEDS: SODIUM CHLORIDE 0.9% 250ML IRRIG IR SCH ×6 (01:00→21:00)
[2018-06-27 04:42] LABS: EOSINOPHILS # (AUTO) 0.1 (0.0-0.4); EOSINOPHILS % 0.4 % (0.0-6.0); HEMATOCRIT 21.1 % (38.2-49.6); LYMPHOCYTES # (AUTO) 1.3 (1.0-3.2); LYMPHOCYTES % 9.8 % (18.0-39.1); MEAN CORPUSCULAR HGB CONC 34.6 g/dL (31-35); MEAN CORPUSCULAR VOLUME 92.5 fL (81-99); MONOCYTES % 7.4 % (4.4-11.3); NEUTROPHILS # (AUTO) 10.4 (2.1-6.9); NEUTROPHILS % 81.2 % (38.7-80.0); PLATELET COUNT 111 x10e3/uL (140-360); RED BLOOD COUNT 2.28 x10e6/uL (4.3-5.7); RED CELL DISTRIBUTION WIDTH 19.5 % (11.7-14.4)
[2018-06-27 04:44] LABS: HEMOGLOBIN 7.3 g/dL (14.0-18.0)
[2018-06-27 04:54] LABS: INR 1.13; PROTHROMBIN TIME 15.5 seconds (11.9-14.5)
[2018-06-27 05:04] LABS: ANION GAP 13.6 mmol/L (8-16); BLOOD UREA NITROGEN 32 mg/dL (7-26); BUN/CREATININE RATIO 28 (6-25); CALCIUM 7.2 mg/dL (8.4-10.2); CARBON DIOXIDE 18 mmol/L (22-29); CHLORIDE 114 mmol/L (98-107); CREATININE, SERUM 1.15 mg/dL (0.72-1.25); EST GLOMERULAR FILTRATION RATE > 60 ML/MIN (60-); GLUCOSE 130 mg/dL (74-118); POTASSIUM 3.6 mmol/L (3.5-5.1); SODIUM 142 mmol/L (136-145)
[2018-06-27] MEDS ORDERED: PANTOPRAZOLE 40 MG 10ML VIAL ONE (05:36)
[2018-06-27] MEDS ORDERED: SODIUM CHLORIDE 0.9% 50ML 50 ML ONE (05:36)
[2018-06-27] MEDS: PROPOFOL IV EMULSION 10MG/ML 100 ML IV PRN (06:00)
[2018-06-27] MEDS ORDERED: SODIUM CHLORIDE 0.9% 250ML 250 ML IV ONE (08:00)
[2018-06-27] MEDS: SUCRALFATE 1 GM/10 ML SUSP NG SCH ×4 (08:21→21:15)
[2018-06-27] MEDS: CITRIC ACID/SODIUM CITRATE 30 ML UDC PO SCH ×2 (08:46→13:37)
[2018-06-27] MEDS ORDERED: FAMOTIDINE 20 MG/2 ML VIAL IV NR (09:00)
[2018-06-27] MEDS ORDERED: DEXAMETHASONE SOD PHOS 10 MG/1 ML VIAL IV NR (09:00)
[2018-06-27] MEDS ORDERED: DIPHENHYDRAMINE HCL INJ 50 MG/ML VIAL IV NR (09:00)
[2018-06-27 10:19] LABS: ABG PH 7.39 (7.31-7.41)
[2018-06-27 10:20] LABS: ABG HCO3 18 mmol/L (23-28); ABG PCO2 30 mmHg (41-51); ABG PO2 94 mmHg (80-105)
[2018-06-27] MEDS: PANTOPRAZOLE INJ 40 MG in SODIUM CHLORIDE 0.9% 50ML 50 ML IV SCH ×3 (11:00→21:26)
[2018-06-27 11:59] LABS: HEMATOCRIT 20.1 % (38.2-49.6)
[2018-06-27 12:03] LABS: HEMOGLOBIN 6.7 g/dL (14.0-18.0)
--- NOTE | 2018-06-27 12:20 | Diagnostic Imaging Report ---
EXAMINATION: CHEST SINGLE (PORTABLE) INDICATION: Intubation COMPARISON: Chest radiograph 06/26/18 at 534 AM. FINDINGS: TUBES and LINES: Interval extubation. An AICD device is present. Right upper extremity PICC line is stable with tip near the cavoatrial junction. Enteric tube terminates in the distal stomach. Partially visualized biliary stent. LUNGS: Slightly decreased interval lung volumes. Slightly increased patchy bibasilar opacities. Findings of pulmonary venous congestion without michelle pulmonary edema. PLEURA: No pleural effusion or pneumothorax. HEART AND MEDIASTINUM: The cardiomediastinal silhouette is unchanged. There are atherosclerotic calcifications within the aorta. BONES AND SOFT TISSUES: No acute osseous lesion. Soft tissues are unremarkable. UPPER ABDOMEN: No free air under the diaphragm. IMPRESSION: Status post interval extubation. Interval decrease in lung volumes with slightly increased patchy bibasilar opacities, more likely atelectasis than pneumonia. Signed by: Dr. Colt Austin MD on 06/27/2018 12:16 PM
[2018-06-27] MEDS ORDERED: SODIUM CHLORIDE 0.9% 250ML 250 ML ONE (13:00)
[2018-06-27 18:37] LABS: BASOPHILS % 0.1 % (0.0-1.0); EOSINOPHILS % 0.2 % (0.0-6.0); HEMATOCRIT 24.4 % (38.2-49.6); HEMOGLOBIN 8.2 g/dL (14.0-18.0); LYMPHOCYTES # (AUTO) 0.5 (1.0-3.2); LYMPHOCYTES % 3.9 % (18.0-39.1); MEAN CORPUSCULAR HEMOGLOBIN 31.3 pg (28-32); MEAN CORPUSCULAR HGB CONC 33.6 g/dL (31-35); MEAN CORPUSCULAR VOLUME 93.1 fL (81-99); MONOCYTES # (AUTO) 0.3 (0.2-0.8); MONOCYTES % 2.8 % (4.4-11.3); NEUTROPHILS # (AUTO) 10.7 (2.1-6.9); NEUTROPHILS % 91.6 % (38.7-80.0); RED BLOOD COUNT 2.62 x10e6/uL (4.3-5.7); RED CELL DISTRIBUTION WIDTH 18.5 % (11.7-14.4)
[2018-06-27 18:38] LABS: PLATELET COUNT 85 x10e3/uL (140-360)
[2018-06-27] MEDS: SIMVASTATIN 20 MG TAB PO SCH (21:15)
[2018-06-28] VITALS (59 sets, daily range): BP systolic 101–154; BP diastolic 52–92
[2018-06-28] MEDS: SODIUM CHLORIDE 0.9% 250ML IRRIG IR SCH ×2 (01:00→04:29)
[2018-06-28] MEDS: PANTOPRAZOLE INJ 40 MG in SODIUM CHLORIDE 0.9% 50ML 50 ML IV SCH ×2 (02:00→07:45)
--- NOTE | 2018-06-28 02:13 | Diagnostic Imaging Report ---
Tagged-RBC GI Bleed Study Clinical information: 78-year-old male with upper and lower GI bleeding. Known history of duodenal ulcer. Continued decrease in hemoglobin. Discussion: The patient's own red blood cells were labeled with 27.5 mCi of technetium-99m sodium pertechnetate using the in vitro method (UltraTag). Dynamic images of the abdomen were obtained through 60 minutes. Distribution of tracer activity appears physiologic throughout the abdomen. No abnormal accumulation of tracer is seen within the gastrointestinal lumen. Impression: There is no scan evidence of active gastrointestinal bleeding at this time. Signed by: Dr. Carroll Solis M.D. on 06/28/2018 2:09 AM
[2018-06-28 05:06] LABS: HEMATOCRIT 24.5 % (38.2-49.6); HEMOGLOBIN 8.5 g/dL (14.0-18.0); LYMPHOCYTES # (AUTO) 0.6 (1.0-3.2); LYMPHOCYTES % 6.9 % (18.0-39.1); MEAN CORPUSCULAR HEMOGLOBIN 31.8 pg (28-32); MEAN CORPUSCULAR HGB CONC 34.7 g/dL (31-35); MEAN CORPUSCULAR VOLUME 91.8 fL (81-99); MONOCYTES # (AUTO) 0.4 (0.2-0.8); MONOCYTES % 4.4 % (4.4-11.3); NEUTROPHILS # (AUTO) 7.5 (2.1-6.9); NEUTROPHILS % 87.5 % (38.7-80.0); PLATELET COUNT 87 x10e3/uL (140-360); RED BLOOD COUNT 2.67 x10e6/uL (4.3-5.7); RED CELL DISTRIBUTION WIDTH 18.6 % (11.7-14.4)
[2018-06-28 05:10] LABS: ALANINE AMINOTRANSFERASE 16 IU/L (0-55); ALBUMIN 1.5 g/dL (3.5-5.0); ALBUMIN/GLOBULIN RATIO 0.7 (0.8-2.0); ALKALINE PHOSPHATASE 38 IU/L (40-150); BLOOD UREA NITROGEN 26 mg/dL (7-26); BUN/CREATININE RATIO 31 (6-25); CARBON DIOXIDE 18 mmol/L (22-29); CHLORIDE 116 mmol/L (98-107); CREATININE, SERUM 0.83 mg/dL (0.72-1.25); EST GLOMERULAR FILTRATION RATE > 60 ML/MIN (60-); GLUCOSE 133 mg/dL (74-118); MAGNESIUM 1.5 MG/DL (1.3-2.1); SODIUM 144 mmol/L (136-145)
[2018-06-28 05:11] LABS: CALCIUM 6.9 mg/dL (8.4-10.2)
[2018-06-28] MEDS ORDERED: CALCIUM GLUCONATE 10% INJ 4.65 MEQ in SODIUM CHLORIDE 0.9% 50ML 100 ML IV ONE (06:30)
--- NOTE | 2018-06-28 07:12 | Progress Note ---
DATE: June 27, 2018 CARDIOLOGY PROGRESS NOTE SUBJECTIVE: The patient has been extubated. He continues to have melanotic stool, and is being transfused 1 unit of PRBCs. He denies chest pain or shortness of breath. OBJECTIVE VITALS: Temperature 99.2 degrees, pulse 93, respiratory rate 14, blood pressure 127/64, oxygen saturation 100% on 3 L nasal cannula. GENERAL: Chronic ill-appearing man in no acute distress. LUNGS: Clear to auscultation bilaterally. No wheezes or crackles. CARDIOVASCULAR: Normal rate. Regular rhythm. No murmur. Normal S1 and S2. ABDOMEN: Soft and nontender. EXTREMITIES: No edema. CARDIAC MEDICATIONS 1. Simvastatin 20 mg p.o. at bedtime. 2. Furosemide 20 mg IV p.r.n. transfusion. LABS: WBC 12.85, hemoglobin 6.7, hematocrit 28.1, and platelets 111,000. Sodium 142, potassium 3.6, chloride 114, CO2 18, BUN 32, creatinine 1.15. Telemetry is normal sinus rhythm with PACs and PVCs. IMPRESSION 1. Acute gastrointestinal bleeding. 2. Ventricular arrhythmia: Status post defibrillation by automatic implanted cardioverter defibrillator during admission. 3. 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 4. Chronic systolic heart failure: Status post automatic implanted cardioverter defibrillator. 5. Coronary artery disease: Status post coronary artery bypass graft. 6. Elevated troponin. 7. Hypertension. 8. Acute kidney injury, resolved. 9. Pancreatic cancer. RECOMMENDATIONS: Given the patient's decision to be discharged on Hospice, the patient's AICD has been turned off. Recommend stopping simvastatin. Monitor the patient on telemetry. No further cardiac evaluation is indicated at this time. He is not a candidate for antiplatelet or anticoagulation due to active bleeding. His prognosis is poor. Thank you for this consult. We will continue to follow. Job#: [id number]
[2018-06-28] MEDS: SUCRALFATE 1 GM/10 ML SUSP NG SCH ×4 (07:45→20:11)
[2018-06-28] MEDS: CITRIC ACID/SODIUM CITRATE 30 ML UDC PO SCH (08:15)
--- NOTE | 2018-06-28 13:02 | Progress Note ---
DATE: June 28, 2018 GASTROENTEROLOGY PROGRESS NOTE SUBJECTIVE: Patient has had 1 episode of burgundy-colored stool last night. No hematemesis. No bowel movements since morning. Denies any abdominal pain. On clear liquid diet. REVIEW OF SYSTEMS: GENERAL: No fever or chills. CVS: No chest pain, palpitation. RESPIRATORY: No cough or expectoration. MEDICATIONS: Reviewed. He is still on Protonix infusion along with sucralfate suspension. PHYSICAL EXAMINATION: VITAL SIGNS: Temperature 98.3, pulse 61, respiration 16, blood pressure 127/60, oxygen saturation 100% on 2 liter of nasal cannula. GENERAL: Not in any acute distress. Gross pallor. Oral mucosa is moist. ABDOMEN: Soft, nondistended, nontender. No palpable mass or hernia. Positive bowel sounds. LABS: Hemoglobin dropped down from 7.3 to 6.7. After that, he received 2 units of packed red blood cells with which hemoglobin went up to 8.2 and subsequently 8.5 today. IMPRESSION: 1. Recurrent upper gastrointestinal bleed from greater duodenal ulcer, status post esophagogastroduodenoscopy with cautery. Status post angioembolization of gastroduodenal artery, subsequent recurrent GI bleed witnessed in the ICU; however, repeated unclear bleeding scan has been negative. 2. Advanced pancreatic cancer with a focus in the liver suggestive of metastasis. Vasculatures are also involved. Not a candidate for surgery. High cardiac risk with a very poor cardiac result. PLAN: Continue to observe him in the ICU for at least 24 hours. Advanced to clear liquid diet. We can switch PPI infusion to IV Protonix twice daily. Continue sucralfate. If patient has another episode of GI bleed, then only option left is surgery. I am not sure whether he is a good surgical candidate. Dr. Holden is following the patient. Job#: [id number] EV
[2018-06-28] MEDS ORDERED: POTASSIUM CHLORIDE 20MEQ/100ML 100 ML IV PRN (14:15)
[2018-06-28 15:25] LABS: HEMOGLOBIN 9.5 g/dL (14.0-18.0)
--- NOTE | 2018-06-28 15:28 | Progress Note ---
DATE: June 28, 2018 CARDIOLOGY PROGRESS NOTE SUBJECTIVE: Patient denies chest pain or shortness of breath. There has been no further bleeding. OBJECTIVE VITAL SIGNS: Temperature 98.3 degrees, pulse 61, respiratory rate 16, blood pressure 127/60, oxygen saturation 100% on 2 liters nasal cannula. GENERAL: Chronically ill-appearing man in no acute distress. Awake and alert. LUNGS: Clear to auscultation bilaterally. No wheezes or crackles. CARDIOVASCULAR: Normal rate, regular rhythm. No murmur. Normal S1 and S2. ABDOMEN: Soft, nontender. EXTREMITIES: No edema. CARDIAC MEDICATIONS: Simvastatin 20 mg p.o. nightly. LABS: WBC 8.56, hemoglobin 8.5, hematocrit 24.5, platelets 87. Sodium 144, potassium 3, chloride 116, CO2 18, BUN 26, creatinine 0.83. Calcium 6.9. TELEMETRY: Normal sinus rhythm. IMPRESSION 1. Acute gastrointestinal bleed. 2. Ventricular arrhythmia status post defibrillation by automatic implantable cardioverter-defibrillator during admission. 3. 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 4. Chronic systolic heart failure status post automatic implantable cardioverter-defibrillator. 5. Coronary artery disease status post coronary artery bypass graft. 6. Elevated troponin. 7. Hypertension. 8. Acute kidney injury, resolved. 9. Pancreatic cancer. RECOMMENDATIONS: Given patient's decision to be discharged on hospice, the patient's ICD has been turned off. Recommend stopping simvastatin. Monitor patient on telemetry. No further cardiac evaluation is indicated at this time. He is not a candidate for antiplatelet or anticoagulation due to active bleeding. His prognosis is poor. Thank you for this consult. We will continue to follow. Job#: [id number] EV
[2018-06-28] MEDS: PANTOPRAZOLE 40 MG 10ML VIAL IV SCH ×2 (19:31→20:11)
[2018-06-28] MEDS ORDERED: MEROPENEM 1GM 100 ML IV SCH (22:00)
[2018-06-29] VITALS (13 sets, daily range): BP systolic 142–184; BP diastolic 58–98
[2018-06-29] MEDS: SODIUM CHLORIDE 0.9% 1000ML 1,000 ML IV SCH ×2 (03:59→04:51)
[2018-06-29 04:41] LABS: BASOPHILS % 0.1 % (0.0-1.0); EOSINOPHILS # (AUTO) 0.1 (0.0-0.4); EOSINOPHILS % 1.3 % (0.0-6.0); HEMATOCRIT 30.3 % (38.2-49.6); HEMOGLOBIN 10.1 g/dL (14.0-18.0); LYMPHOCYTES # (AUTO) 1.7 (1.0-3.2); LYMPHOCYTES % 15.4 % (18.0-39.1); MEAN CORPUSCULAR HEMOGLOBIN 30.9 pg (28-32); MEAN CORPUSCULAR HGB CONC 33.3 g/dL (31-35); MEAN CORPUSCULAR VOLUME 92.7 fL (81-99); MONOCYTES # (AUTO) 0.9 (0.2-0.8); MONOCYTES % 7.9 % (4.4-11.3); NEUTROPHILS # (AUTO) 7.9 (2.1-6.9); NEUTROPHILS % 74.2 % (38.7-80.0); PLATELET COUNT 127 x10e3/uL (140-360); RED BLOOD COUNT 3.27 x10e6/uL (4.3-5.7); RED CELL DISTRIBUTION WIDTH 19.3 % (11.7-14.4)
[2018-06-29 04:55] LABS: INR 0.95; PROTHROMBIN TIME 13.5 seconds (11.9-14.5)
[2018-06-29 05:03] LABS: BLOOD UREA NITROGEN 29 mg/dL (7-26); BUN/CREATININE RATIO 34 (6-25); CALCIUM 8.1 mg/dL (8.4-10.2); CARBON DIOXIDE 23 mmol/L (22-29); CHLORIDE 113 mmol/L (98-107); CREATININE, SERUM 0.86 mg/dL (0.72-1.25); EST GLOMERULAR FILTRATION RATE > 60 ML/MIN (60-); GLUCOSE 115 mg/dL (74-118); SODIUM 145 mmol/L (136-145)
--- NOTE | 2018-06-29 07:06 | Diagnostic Imaging Report ---
EXAMINATION: CHEST SINGLE (PORTABLE) INDICATION: Shortness of breath COMPARISON: 06/27/2018 FINDINGS: TUBES and LINES: AICD is intact. Right upper extremity PICC line is in good position. LUNGS: Lungs are not well inflated. Improved atelectasis. There is mild prominence of the central pulmonary vasculature, consistent with pulmonary venous congestion. PLEURA: No pleural effusion or pneumothorax. HEART AND MEDIASTINUM: Cardiac size is mildly enlarged. There are atherosclerotic calcifications within the aorta. BONES AND SOFT TISSUES: No acute osseous lesion. Soft tissues are unremarkable. UPPER ABDOMEN: No free air under the diaphragm. IMPRESSION: 1. Patient is status post extubation. 2. An ICD and right PICC line are in good position. 3. Central vascular congestion. Signed by: Dr. Carroll Solis M.D. on 06/29/2018 7:02 AM
[2018-06-29] MEDS: SUCRALFATE 1 GM/10 ML SUSP NG SCH (07:49)
[2018-06-29] MEDS ORDERED: POTASSIUM CHLORIDE 20MEQ/100ML 100 ML IV ONE (08:30)
--- NOTE | 2018-06-29 09:32 | Progress Note ---
DATE: June 29, 2018 CARDIOLOGY PROGRESS NOTE SUBJECTIVE: The patient denies chest pain or shortness of breath. He will be discharged home on Hospice today. OBJECTIVE VITALS: Temperature 98.4 degrees, pulse 72, respiratory rate 16, blood pressure 158/81, oxygen saturation 95% on room air. GENERAL: Elderly man in no acute distress. Awake and alert. LUNGS: Clear to auscultation bilaterally. No wheezes or crackles. CARDIOVASCULAR: Normal rate. Regular rhythm. No murmur. Normal S1 and S2. ABDOMEN: Soft and nontender. EXTREMITIES: No edema. CARDIAC MEDICATIONS: None. LABS: WBC 10.7, hemoglobin 10.1, hematocrit 30.3, and platelets 127,000. Sodium 145, potassium 3, chloride 113, CO2 23, BUN 29, creatinine 0.86. Chest x-ray: The patient is status post extubation and ICD and right PICC line are in good position. Central vascular congestion. Telemetry is normal sinus rhythm with PVCs. IMPRESSION 1. Acute gastrointestinal bleeding. 2. Ventricular arrhythmia: Status post defibrillator by automatic implanted cardioverter defibrillator during admission. 3. 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 4. Chronic systolic heart failure: Status post automatic implanted cardioverter defibrillator. 5. Coronary artery disease: Status post coronary artery bypass graft. 6. Elevated troponin. 7. Hypertension. 8. Acute kidney injury, resolved. 9. Pancreatic cancer. RECOMMENDATIONS: Given the patient's decision to be discharged on Hospice, the ICD has been turned off. Cardiac medications have been discontinued. No further cardiac evaluation is indicated at this time. He is not a candidate for antiplatelet therapy or anticoagulation due to recent bleeding. Thank you for this consult. We will continue to follow. Job#: [id number] NM
== END 2018-06-29 11:44 | disposition hospice, home (50) | DRG 377 ==
LOC: ER 22:08 → ICU 06-17 00:24 → MED/SURG2 06-20 21:22 → ICU 06-22 08:33 → IMCU 06-24 14:47 → ICU 06-24 20:20
PROVIDERS: ADMIT Family Medicine; ATTEND Family Medicine
PROC: 30233N1 Transfusion of Nonautologous Red Blood Cells into Peripheral Vein, Percutaneous Approach (ICD-10-PCS; 2018-06-16)
PROC: 02HV33Z Insertion of Infusion Device into Superior Vena Cava, Percutaneous Approach (ICD-10-PCS; 2018-06-17)
PROC: 0DJ08ZZ Inspection of Upper Intestinal Tract, Via Natural or Artificial Opening Endoscopic (ICD-10-PCS; principal; 2018-06-17 09:52)
PROC: 0F798DZ Dilation of Common Bile Duct with Intraluminal Device, Via Natural or Artificial Opening Endoscopic (ICD-10-PCS; 2018-06-20)
PROC: 0FPB8DZ Removal of Intraluminal Device from Hepatobiliary Duct, Via Natural or Artificial Opening Endoscopic (ICD-10-PCS; 2018-06-20)
PROC: 0W3P8ZZ Control Bleeding in Gastrointestinal Tract, Via Natural or Artificial Opening Endoscopic (ICD-10-PCS; 2018-06-24)
PROC: 0W3P8ZZ Control Bleeding in Gastrointestinal Tract, Via Natural or Artificial Opening Endoscopic (ICD-10-PCS; 2018-06-24)
PROC: 04L23DZ Occlusion of Gastric Artery with Intraluminal Device, Percutaneous Approach (ICD-10-PCS; 2018-06-25)
PROC: 5A1945Z Respiratory Ventilation, 24-96 Consecutive Hours (ICD-10-PCS; 2018-06-25)
PROC: 0BH17EZ Insertion of Endotracheal Airway into Trachea, Via Natural or Artificial Opening (ICD-10-PCS; 2018-06-25)
DX: K26.0 Acute duodenal ulcer with hemorrhage (principal); K83.1 Obstruction of bile duct; I63.511 Cerebral infarction due to unspecified occlusion or stenosis of right middle cerebral artery; C25.9 Malignant neoplasm of pancreas, unspecified; I13.0 Hypertensive heart and chronic kidney disease with heart failure and stage 1 through stage 4 chronic kidney disease, or unspecified chronic kidney disease; I50.42 Chronic combined systolic (congestive) and diastolic (congestive) heart failure; I69.354 Hemiplegia and hemiparesis following cerebral infarction affecting left non-dominant side; N17.9 Acute kidney failure, unspecified; C78.7 Secondary malignant neoplasm of liver and intrahepatic bile duct; C79.89 Secondary malignant neoplasm of other specified sites; D62 Acute posthemorrhagic anemia; I25.10 Atherosclerotic heart disease of native coronary artery without angina pectoris; N40.0 Benign prostatic hyperplasia without lower urinary tract symptoms; K21.9 Gastro-esophageal reflux disease without esophagitis; D64.9 Anemia, unspecified; E11.22 Type 2 diabetes mellitus with diabetic chronic kidney disease; N18.3 Chronic kidney disease, stage 3 (moderate); Z95.1 Presence of aortocoronary bypass graft; Z95.810 Presence of automatic (implantable) cardiac defibrillator; Z88.6 Allergy status to analgesic agent; Z88.2 Allergy status to sulfonamides; Z88.8 Allergy status to other drugs, medicaments and biological substances; Z82.49 Family history of ischemic heart disease and other diseases of the circulatory system; E78.5 Hyperlipidemia, unspecified; Z66 Do not resuscitate; K22.2 Esophageal obstruction; K44.9 Diaphragmatic hernia without obstruction or gangrene; K29.70 Gastritis, unspecified, without bleeding; K25.9 Gastric ulcer, unspecified as acute or chronic, without hemorrhage or perforation; Z93.1 Gastrostomy status; F41.9 Anxiety disorder, unspecified; I49.3 Ventricular premature depolarization; J98.8 Other specified respiratory disorders; Z96.89 Presence of other specified functional implants
CPT/HCPCS: 36247; 36415; 36430; 36569; 36600; 43235; 43255; 43260; 51700; 70450; 71045; 74018; 74328; 74470; 75726; 75774; 78278; 80048; 80053; 80061; 81001; 82330; 82550; 82553; 82805; 82948; 83036; 83605; 83690; 83735; 83880; 84100; 84132; 84484; 85014; 85018; 85025; 85610; 85730; 86301; 86850; 86900; 86920; 87086; 93005; 93306; 93880; 94002; 94003; 96361; 96365; 96366; 96374; 99285; A9512; C1769; J0171; J0610; J1100; J1756; J1940; J2001; J2250; J2405; J2543; J3370; J3480; J7030; J7040; J7050; P9016; Q9967